=== PATIENT | female | born 1990 | race Caucasian/White ===

== ENCOUNTER 2017-09-27 15:30 | Outpatient (RCR) | payer OTHER, SELFPAY ==
--- NOTE | 2017-07-31 15:58 | HP.PTEVAL_ITS ---
Patient's Visit Information ANAND FRANKLIN is a 26 year old F referred to Physical Therapy by MD BARB Hutchison with a diagnosis of L/S strain. Date of Evaluation: 07/31/17 Physical Therapist: Ren Ewing, PT, - Visit Plan Frequency: 3x /Week Duration: 4-6 Weeks Plan: Postural edu, Neutral spine stab ex's, continued assessment of REIL as karin , HEP, and bike. US and EMS to control pt's pain - Subjective Subjective: DOI: 07/19/17. 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 Pt reports she suddenly on this date experienced, a popping sensation in her LB which resulted in her LB locking up and sudden pain. Pt reports she needed assistance from co workers to sit down and help her LB to feel better. Pt reports no PMHx of LBP prior to this episode. Pt notes she also has L LE T and N down L LE to the ant portion of the L knee. Sleep diff secondary to pain. Pt notes pain with sitting, standing, and walking. Pt reports leaning against her counter tops helps to ease her pain some. 7/10 at rest, 9/10 at worst (prolonged standing) - Pain LBP Pain Intensity (Out of 10): 7 Pain Intensity Range: 9 - Objective Neuro: B LE sensation is WNL to light touch. B pat tendon reflex= 2/3. MMT: B LE MMT is grossly rated at 5/5 throughout. ROM: Pt is severely limited with flex ROM in the L/S, and moderately limited with R SB and extension. No limitations with L SB. Repeated movements: both repeated flex and ext in standing peripheralized sx's into L LE - Goals Goal 1:: Decrease LBP x 50% to aid with sleep Goal Time Frame: 4-6 Weeks Goal 2:: Increase L/S ROM in all planes to WNL to aid with RTW without limitation Goal Time Frame: 4-6 Weeks Goal 3:: Decrease L LE radiculopathy x 50% to aid with increasing karin for ambulation Goal Time Frame: 4-6 Weeks Goal 4:: I with HEP Goal Time Frame: 4-6 Weeks - Rehabilitation Potential Physical Therapy Diagnosis: LBP, decreased L/S ROM, and L LE radiculopathy secondary to L/S disc derrangement Rehabilitation Potential: Good - Anticipated Interventions Patient/Client Instruction: Educate patient on: Condition, Plan of Care For the Purpose of:: To improve self management Therapeutic Exercise to Include: Strength training, Endurance training, Body mechanics, Postural training, Dynamic Lumbar Stabilization For the Purpose of:: To decrease pain, To increase ROM, To improve muscle performance and motor function IF ES: Yes Ultrasound (thermal/non thermal): Yes For the Purpose of:: To decrease pain, To improve muscle performance and motor function Thank you for the opportunity to evaluate your patient. For Medicare and Medicare HMO plans, please review the plan of care and approve it. It will need to be FAXED BACK to us at [phone] for Medicare purposes. Please let me know if there are questions or concerns regarding this plan of care. Physician Signature: Date:
--- NOTE | 2017-08-23 16:51 | HP.PTDCSUM ---
HP - PT D/C Summary It has been my pleasure to treat ANAND FRANKLIN under orders from Wing Mack MD, for the diagnosis of L/S strain for a total of 9 visit(s). Discharge Date: Please see the following information for a summary of their discharge status. - Subjective Subjective: PATIENT REPORTS SHE IS REALLY HURTING TODAY. SHE REPORTS SHE WOKE UP IN THE MIDDLE OF THE NIGHT WITH A LOT OF PAIN AND HORRIBLE PAIN ALL DAY TODAY FOR NO APPARENT REASON. THE PAIN IS EXTENDING INTO HER LEFT THIGH 02/11. PATIENT REPORTS SHE IS SCHEDULED TO SEE THE MED PRO DOCTOR 09/03/17. - Pain LBP Pain Intensity (Out of 10): 7 LEFT GROIN Pain Intensity (Out of 10): 0 - Overall Improvement % Improvement: 25 - Objective Objective/Function: OVER ALL PATIENT HAS NOT SHOWN A LOT OF IMPROVEMENT WITH PT. SHE IS PAINFUL WITH LUMBAR ROM TESTING ALL PLANES AND TESTING TODAY IS VERY SIMILAR TO INITIAL MEASUREMENTS. UPON EXAM TODAY: LUMBAR MVMT LOSS: FLEX - MOD, EXT - MIN, IVÁN SG - MIN. PATIENT WITH C/O INCREASED PAIN WITH LUMBAR ROM TESTING ALL PLANES JOSE JUAN FLEX AND EXTENSION. NEGATIVE RIGHT AND POSITIVE LLE DURAL. Neuro: B LE sensation is WNL to light touch. B pat tendon reflex= 2/3. MMT: B LE MMT is grossly rated at 5/5 throughout. PATIENT MAY BE A GOOD CANDIDATE TO TRY AQUATIC THERAPY. THIS WAS DISCUSSED WITH PATIENT AND SHE EXPRESSED WILLINGNESS TO TRY IT IF OK'D BY DOCTOR/INSURANCE. - Goals Goal 1:: Decrease LBP x 50% to aid with sleep Goal 2:: Increase L/S ROM in all planes to WNL to aid with RTW without limitation Goal 3:: Decrease L LE radiculopathy x 50% to aid with increasing karin for ambulation Goal 4:: I with HEP - Plan Plan: D/C TO FOLLOW UP WITH PHYSICIANS DUE TO NO FURTHER AUTH AT THIS TIME. - D/C Information If there are questions or concerns regarding this patient's physical therapy, please feel free to call me at [phone]. Thank you for the referral of this patient. Sincerely, Cristal Turpin
== END 2017-09-27 16:00 | disposition home or self-care (01) ==
LOC: PT 15:30
PROVIDERS: Visit Provider Family Medicine
DX: S39.012S Strain of muscle, fascia and tendon of lower back, sequela (principal)
CPT/HCPCS: 97014; 97110; 97161; 97530; G0283

== ENCOUNTER 2017-10-21 10:58 | Day surgery (SDC) | payer OTHER, SELFPAY ==
[2017-10-21 11:25] VITALS: BP 140/83; PULSE 81; RESP 18; TEMP 36.8; O2SAT 98; BMI 57.2
[2017-10-21 12:06] LABS: Internal QC Validated? YES +Cl - CLEAR BKGD; Pregnancy, Urine Negative Negative
--- NOTE | 2017-10-21 12:10 | RAD_ITS ---
PROCEDURE: Caudal block. DATE OF EXAMINATION: October 21, 2017. INDICATION: Female, 27 years old. Chronic back pain. FLUOROSCOPY TIME (if supplied): (0:12) minutes/seconds Imaging provided for caudal block. RAD/Fluor Guidance for Spine Inj IMPRESSION: Intraoperative imaging provided for caudal block. Electronically Signed: Zion Huizar MD at 15:57 EDT Tel [phone], Service support ,
[2017-10-21] MEDS: MethylPREDNISolone Acetate 80 MG/ML Vial (12:20)
[2017-10-21] MEDS: Bupivacaine 0.25% 30 ML Vial (12:20)
[2017-10-21 12:24] VITALS: BP 120/92; BP 140/83; PULSE 89; RESP 18; TEMP 36.5; O2SAT 97
[2017-10-21 12:30] VITALS: BP 114/61; BP 140/83; PULSE 79; RESP 18; O2SAT 97
[2017-10-21 12:35] VITALS: BP 122/76; BP 140/83; PULSE 75; RESP 16; O2SAT 97
[2017-10-21 12:40] VITALS: BP 120/65; BP 140/83; PULSE 71; RESP 18; TEMP 36.6; O2SAT 98
[2017-10-21 13:09] VITALS: BP 140/83
--- NOTE | 2017-10-21 13:44 | OP.PCM_ITS ---
Problem List (1) Displacement of intervertebral disc of lumbosacral region Status: Chronic Report of Operation Date of Procedure: 10/21/17 Pre-Operative Diagnosis: Lumbar disc displacement Post-Operative Diagnosis: Lumbar disc displacement Surgery/Procedure Performed:: Diagnostic/therapeutic caudal epidural steroid injection Description of Surgical Findings:: PROCEDURE: Diagnostic/therapeutic caudal epidural steroid injection PREOPERATIVE DIAGNOSIS: Lumbar Disc Displacement POSTOPERATIVE DIAGNOSIS: Lumbar Disc Displacement ANESTHESIA: MAC COMPLICATIONS: None BLOOD LOSS: Minimal PROCEDURE IN DETAIL: History and physical today was reviewed. Risks and benefits of the procedure were explained. The patient understood, agreed to our procedure, and informed consent was obtained. IV inserted per routine protocol. The patient was taken to the operating room, placed in a prone position with a pillow positioned underneath the abdomen. The lower back and tailbone area was prepped and draped in a sterile fashion using iodine ?3 under fluoroscopy guidance on the lateral view the caudal space was identified the skin and subcutaneous tissue and size approximately 3 cc of 1 % lidocaine using a 25-gauge regular needle under direct visualization fluoroscopy using the lateral approach using a 22-gauge 3-1/2 inch spinal needle the needle was advanced via the skin through the sacral hiatus, tip of the needle passed through the sacrococcygeal ligament advanced approximately S4 area after negative aspiration for blood or CSF a total of 3 cc of contrast were injected to confirm correct placement of the needle as well as cephalad spread the spread was followed to approximately L5 area after confirmation AP as well as lateral view repeated negative aspiration a total of 15 cc of preservative-free 0.125% Marcaine with 80 mg of the portal was injected easily. The needles were then removed intact. The patient experienced no signs or symptoms intrathecal, intravascular injection. The patient experienced no paraesthesia. The procedure was completed without any apparent difficult, any complication. The patient appeared to tolerate well. ASSESSMENT AND PLAN: This is a 27-year-old female with lumbar disc displacement status post diagnostic/therapeutic caudal epidural steroid injection. The patient will continue her current medications. The patient will follow in approximately 2 weeks for possible repeat of the procedure if indicated.
== END 2017-10-21 13:10 | disposition home or self-care (01) ==
LOC: SDC 11:00 → AC 11:02
PROVIDERS: Anesthesiology; Visit Provider Anesthesiology Pain Medicine
PROC: 3E0S3BZ Introduction of Anesthetic Agent into Epidural Space, Percutaneous Approach (ICD-10-PCS; CPT 62282; principal; 2017-10-21 12:20)
DX: M51.27 Other intervertebral disc displacement, lumbosacral region (principal); Z79.891 Long term (current) use of opiate analgesic
CPT/HCPCS: 62323; 64483; 77003; 81025; J7120; J3490

== ENCOUNTER → 2017-11-01 06:44 | Outpatient (CLI) | payer BC, SELFPAY ==
[2017-11-01 08:15] LABS: Cholesterol 168 mg/dL (200); Follicle Stimulating Hormone 8.2 mIU/mL; Glucose 92 mg/dL (74-106); High Density Lipoprotein 58 mg/dL; Prolactin 13.3 ng/mL; Triglycerides 80 mg/dL; Very Low Density Lipoprotein 16 mg/dL (5-40)
[2017-11-03 16:07] LABS: DHEA Sulfate 55.4 ug/dL (84.8-378.0)
[2017-11-04 11:07] LABS: Testosterone Free 0.9 pg/mL (0.0-4.2)
[2017-11-06 15:48] LABS: 17-Hydroxyprogesterone 41 ng/dL (.)
== END ==
LOC: LAB 06:45
PROVIDERS: Visit Provider Nurse Practitioner Women's Health
DX: N92.6 Irregular menstruation, unspecified (principal); E66.9 Obesity, unspecified
CPT/HCPCS: 36415; 80061; 82627; 82947; 83001; 83498; 84146; 84402; 84443; 82626

== ENCOUNTER → 2017-11-19 16:37 | Outpatient (CLI) | payer BC, SELFPAY ==
[2017-11-19 17:50] LABS: T4 Free Direct 0.85 ng/dL (0.76-1.46)
== END ==
PROVIDERS: Family Provider Internal Medicine; PCP Internal Medicine; Visit Provider Internal Medicine
DX: E03.9 Hypothyroidism, unspecified (principal)
CPT/HCPCS: 36415; 84439; 84443

== ENCOUNTER → 2017-11-22 14:48 | Outpatient (CLI) | payer BC, SELFPAY ==
--- NOTE | 2017-11-22 15:00 | US_ITS ---
STUDY: THYROID ULTRASOUND REASON FOR EXAM: Female, 27 years old. Hypothyroidism TECHNIQUE: Transverse and longitudinal ultrasound evaluation of the thyroid was performed with real-time and static willis-scale imaging. COMPARISON: None. FINDINGS: RIGHT LOBE: The right lobe of the thyroid gland measures 4.6 x 1.8 x 1.6 cm. There is a homogeneous echotexture. There are no demonstrated solid, cystic or complex lesions. LEFT LOBE: The left lobe of the thyroid gland measures 3.3 x 1.1 x 1.3 cm. There is a homogeneous echotexture. There are no demonstrated solid, cystic or complex lesions. ISTHMUS: The isthmus measures 3.0 mm. The regional lymph nodes are unremarkable. US/Thyroid IMPRESSION: The right lobe is larger than the left, however the thyroid itself is not significantly enlarged. There are no abnormal masses in the thyroid. Electronically Signed: Sully Lobo MD at 2:12 EDT Tel Direct: [phone], Service support ,
== END ==
LOC: US 14:48
PROVIDERS: Family Provider Internal Medicine; PCP Internal Medicine; Visit Provider Internal Medicine
DX: E03.9 Hypothyroidism, unspecified (principal)
CPT/HCPCS: 76536

== ENCOUNTER 2017-12-23 12:36 | Day surgery (SDC) | payer OTHER, SELFPAY ==
[2017-12-23 12:52] VITALS: PULSE 91; RESP 20; TEMP 36.9; O2SAT 99; BMI 57.7
[2017-12-23 12:54] LABS: Internal QC Validated? YES +Cl - CLEAR BKGD; Pregnancy, Urine Negative Negative
--- NOTE | 2017-12-23 13:30 | RAD_ITS ---
STUDY: X-RAY - LUMBAR SPINE REASON FOR EXAM: Female, 27 years old. Caudal block. TECHNIQUE: Single nondiagnostic view(s) of the lumbar spine was obtained intraoperatively. COMPARISON: None FINDINGS: Intraoperative fluoroscopic services provided for caudal block. RAD/OR-Steroi/Epid Inj/Lum Sac/1st IMPRESSION: Intraoperative fluoroscopic services provided for caudal block. Electronically Signed: Zion Huizar MD at 14:30 EDT Tel [phone], Service support ,
[2017-12-23] MEDS: MethylPREDNISolone Acetate 80 MG/ML Vial (13:50)
[2017-12-23] MEDS: Bupivacaine 0.25% 30 ML Vial (13:50)
[2017-12-23 13:55] VITALS: BP 136/69; PULSE 85; RESP 16; TEMP 36.4; O2SAT 99
[2017-12-23 14:00] VITALS: BP 137/65; PULSE 72; RESP 16; O2SAT 98
[2017-12-23 14:05] VITALS: BP 147/80; PULSE 80; RESP 16; O2SAT 99
[2017-12-23 14:10] VITALS: BP 152/79; PULSE 74; RESP 16; TEMP 37.1; O2SAT 100
--- NOTE | 2017-12-23 14:42 | OP.PCM_ITS ---
Problem List (1) Displacement of intervertebral disc of lumbosacral region Status: Chronic Report of Operation Date of Procedure: 12/23/17 Pre-Operative Diagnosis: Lumbar disc displacement Post-Operative Diagnosis: Lumbar disc displacement Surgery/Procedure Performed:: Caudal epidural steroid injection Description of Surgical Findings:: PROCEDURE: caudal epidural steroid injection PREOPERATIVE DIAGNOSIS: Lumbar Disc Displacement POSTOPERATIVE DIAGNOSIS: Lumbar Disc Displacement ANESTHESIA: MAC COMPLICATIONS: None BLOOD LOSS: Minimal PROCEDURE IN DETAIL: History and physical today was reviewed. Risks and benefits of the procedure were explained. The patient understood, agreed to our procedure, and informed consent was obtained. IV inserted per routine protocol. The patient was taken to the operating room, placed in a prone position with a pillow positioned underneath the abdomen. The lower back and tailbone area was prepped and draped in a sterile fashion using iodine ?3 under fluoroscopy guidance on the lateral view the caudal space was identified the skin and subcutaneous tissue and size approximately 3 cc of 1 % lidocaine using a 25-gauge regular needle under direct visualization fluoroscopy using the lateral approach using a 22-gauge 3-1/2 inch spinal needle the needle was advanced via the skin through the sacral hiatus, tip of the needle passed through the sacrococcygeal ligament advanced approximately S4 area after negative aspiration for blood or CSF a total of 3 cc of contrast were injected to confirm correct placement of the needle as well as cephalad spread the spread was followed to approximately L5 area after confirmation AP as well as lateral view repeated negative aspiration a total of 15 cc of preservative-free 0.125% Marcaine with 80 mg of the portal was injected easily. The needles were then removed intact. The patient experienced no signs or symptoms intrathecal, intravascular injection. The patient experienced no paraesthesia. The procedure was completed without any apparent difficult, any complication. The patient appeared to tolerate well. ASSESSMENT AND PLAN: This is a 27-year-old female with lumbar disc displacement status post caudal epidural steroid injection. The patient will continue her current medications. The patient will follow in approximately 2 weeks for possible repeat of the procedure if indicated.
[2017-12-23] MEDS: fentaNYL 100 MCG/2 ML Ampul IV (14:53)
[2017-12-23 15:56] VITALS: BP 156/85; PULSE 83; RESP 16; TEMP 36.5; O2SAT 100
== END 2017-12-23 16:17 | disposition home or self-care (01) ==
PROVIDERS: Anesthesiology; Family Provider Internal Medicine; PCP Internal Medicine; Visit Provider Anesthesiology Pain Medicine
PROC: 3E0S3BZ Introduction of Anesthetic Agent into Epidural Space, Percutaneous Approach (ICD-10-PCS; CPT 62282; principal; 2017-12-23 13:25)
DX: M51.27 Other intervertebral disc displacement, lumbosacral region (principal); K21.9 Gastro-esophageal reflux disease without esophagitis; E66.3 Overweight; Z68.43 Body mass index [BMI] 50.0-59.9, adult; Z79.891 Long term (current) use of opiate analgesic; Z79.899 Other long term (current) drug therapy
CPT/HCPCS: 01992; 62323; 64520; 64483; 77003; 81025; J7120; J3490

== ENCOUNTER 2018-02-17 09:30 | Day surgery (SDC) | payer OTHER, SELFPAY ==
[2018-02-17] VITALS (8 sets, daily range): BP systolic 123–136; BP diastolic 58–81; PULSE 64–79; RESP 16–18; TEMP 36.5–36.7; O2SAT 96–100; BMI 57.0
[2018-02-17 10:08] LABS: Internal QC Validated? YES +Cl - CLEAR BKGD
[2018-02-17 10:13] LABS: Pregnancy, Urine Negative Negative
--- NOTE | 2018-02-17 10:40 | RAD_ITS ---
PROCEDURE: Caudal block. DATE OF EXAMINATION: February 17, 2018. INDICATION: Female, 27 years old. Low back pain. FLUOROSCOPY TIME (if supplied): (0:04) minutes/seconds Intraoperative fluoroscopic imaging provided for caudal block. The spinal needle was seen on the mid posterior aspect of the sacrum. RAD/Fluor Guidance for Spine Inj IMPRESSION: Imaging provided for caudal block. Electronically Signed: Zion Huizar MD at 8:12 EDT Tel [phone], Service support ,
[2018-02-17] MEDS: MethylPREDNISolone Acetate 80 MG/ML Vial (10:45)
[2018-02-17] MEDS: Bupivacaine 0.25% 30 ML Vial (10:45)
--- NOTE | 2018-02-17 11:27 | OP.PCM_ITS ---
Problem List (1) Displacement of intervertebral disc of lumbosacral region Status: Chronic Report of Operation Date of Procedure: 02/17/18 Pre-Operative Diagnosis: Lumbar disc displacement Post-Operative Diagnosis: Lumbar disc displacement Surgery/Procedure Performed:: Caudal epidural steroid injection Description of Surgical Findings:: PROCEDURE: Caudal epidural steroid injection PREOPERATIVE DIAGNOSIS: Lumbar disc displacement POSTOPERATIVE DIAGNOSIS: Lumbar disc displacement ANESTHESIA: MAC COMPLICATIONS: None BLOOD LOSS: Minimal PROCEDURE IN DETAIL: History and physical today was reviewed. Risks and benefits of the procedure were explained. The patient understood, agreed to our procedure, and informed consent was obtained. IV inserted per routine protocol. The patient was taken to the operating room, placed in a prone position with a pillow positioned underneath the abdomen. The lower back and tailbone area was prepped and draped in a sterile fashion using iodine ?3 under fluoroscopy guidance on the lateral view the caudal space was identified skin and subcutaneous tissue anesthetized approximately 3 cc of 1 % lidocaine using a 25-gauge regular needle under direct visualization with fluoroscopy on the lateral approach using a 22-gauge 3-1/2 inch spinal needle the needle was advanced via the skin through the sacral hiatus tip of the needle passed through the sacrococcygeal ligament advanced approximately S4 area after negative aspiration for blood or CSF a total of 3 cc of contrast were injected to confirm correct placement of the needle as well as cephalad spread the spread was followed to approximately L5 area after confirmation of AP as well as lateral view and repeated negative aspiration a total of 15 cc of preservative-free 0.125% Marcaine with 80 mg of Depo-Medrol were injected easily the needle was then removed intact patient experienced no sinus symptoms intrathecal or intravascular injection patient experienced no paresthesia the procedure was completed without any apparent difficulty any complication the patient appeared to tolerate well. ASSESSMENT AND PLAN: This is a 27-year-old Female with lumbar disc displacement status post caudal epidural steroid injection. The patient will continue her current medications. The patient will follow in approximately 2 weeks for possible repeat of the procedure if indicated.
== END 2018-02-17 11:56 | disposition home or self-care (01) ==
LOC: SDC 09:31 → AC 09:33
PROVIDERS: Anesthesiology; Family Provider Internal Medicine; PCP Internal Medicine; Visit Provider Anesthesiology Pain Medicine
PROC: 3E0S3BZ Introduction of Anesthetic Agent into Epidural Space, Percutaneous Approach (ICD-10-PCS; CPT 62282; principal; 2018-02-17 10:45)
DX: M51.27 Other intervertebral disc displacement, lumbosacral region (principal); K21.9 Gastro-esophageal reflux disease without esophagitis; Z79.891 Long term (current) use of opiate analgesic; Z79.899 Other long term (current) drug therapy
CPT/HCPCS: 01992; 62323; 64520; 64483; 77003; 81025; J7120; J3490

== ENCOUNTER 2018-03-24 13:28 | Day surgery (SDC) | payer OTHER, SELFPAY ==
[2018-03-24 13:48] VITALS: BP 151/80; PULSE 78; RESP 16; TEMP 36.4; O2SAT 99; BMI 56.9
[2018-03-24 14:02] LABS: Internal QC Validated? YES +Cl - CLEAR BKGD; Pregnancy, Urine Negative Negative
--- NOTE | 2018-03-24 14:30 | RAD_ITS ---
PROCEDURE: Caudal block. DATE OF EXAMINATION: March 24, 2018. INDICATION: Female, 27 years old. Low back pain. FLUOROSCOPY TIME (if supplied): (0:18) minutes/seconds. 3 cone-down views were obtained. Intraoperative fluoroscopic services provided for caudal block. RAD/Fluor Guidance for Spine Inj IMPRESSION: Intraoperative fluoroscopic services provided for caudal block. Electronically Signed: Zion Huizar MD at 8:25 EDT Tel [phone], Service support ,
[2018-03-24] MEDS: MethylPREDNISolone Acetate 80 MG/ML Vial (14:36)
[2018-03-24] MEDS: Bupivacaine 0.25% 30 ML Vial (14:37)
[2018-03-24 14:45] VITALS: BP 116/79; BP 151/80; PULSE 82; RESP 16; TEMP 36.7; O2SAT 98
[2018-03-24 14:50] VITALS: BP 135/82; BP 151/80; PULSE 73; RESP 16; O2SAT 98
[2018-03-24 14:55] VITALS: BP 144/80; BP 151/80; PULSE 72; RESP 16; O2SAT 99
[2018-03-24 15:00] VITALS: BP 146/74; BP 151/80; PULSE 77; RESP 18; TEMP 37.2; O2SAT 98
--- NOTE | 2018-03-24 15:16 | PCM.OPRPT ---
Problem List (1) Displacement of intervertebral disc of lumbosacral region Status: Chronic Report of Operation Date of Procedure: 03/24/18 Pre-Operative Diagnosis: Lumbar disc displacement Post-Operative Diagnosis: Lumbar disc displacement Surgery/Procedure Performed:: Caudal epidural steroid injection Description of Surgical Findings:: PROCEDURE: Caudal epidural steroid injection PREOPERATIVE DIAGNOSIS: Lumbar disc displacement POSTOPERATIVE DIAGNOSIS: Lumbar disc displacement ANESTHESIA: MAC COMPLICATIONS: None BLOOD LOSS: Minimal PROCEDURE IN DETAIL: History and physical today was reviewed. Risks and benefits of the procedure were explained. The patient understood, agreed to our procedure, and informed consent was obtained. IV inserted per routine protocol. The patient was taken to the operating room, placed in a prone position with a pillow positioned underneath the abdomen. The Lower back and tailbone area was prepped and draped in a sterile fashion using iodine ?3, under fluoroscopy guidance on the lateral view the caudal space was identified the skin and subcutaneous tissue and size approximately 3 cc of 1% lidocaine using a 25-gauge regular needle under direct visualization with fluoroscopy using a 22-gauge 3-1/2 inch spinal needle the needle was advanced via the skin through the sacral hiatus the needle then was passed through the sacrococcygeal ligament and advanced to approximately S4 area, after negative aspiration for blood or CSF, a total of 3 cc of contrast were injected to confirm correct placement of the needle as well as cephalad spread the spread was followed to approximately L5 area. after confirmation on AP as well as lateral view and repeated negative aspiration, a total of 15 cc of preservative-free 0.125% Marcaine with 80 mg of Depo-Medrol was injected easily. The needles were then removed intact. The patient experienced no signs or symptoms intrathecal, intravascular injection. The patient experienced no paraesthesia. The procedure was completed without any apparent difficult, any complication. The patient appeared to tolerate well. ASSESSMENT AND PLAN: This is a 27-year-old female with lumbar disc displacement status post caudal epidural steroid injection. The patient will continue her current medications. The patient will follow in approximately 2 weeks for reevaluation.
[2018-03-24 15:28] VITALS: BP 151/80
== END 2018-03-24 15:41 | disposition home or self-care (01) ==
LOC: SDC 13:30 → AC 13:31
PROVIDERS: Family Provider Internal Medicine; PCP Internal Medicine; Visit Provider Anesthesiology Pain Medicine
PROC: 3E0S3BZ Introduction of Anesthetic Agent into Epidural Space, Percutaneous Approach (ICD-10-PCS; CPT 62282; principal; 2018-03-24 14:05)
DX: M51.27 Other intervertebral disc displacement, lumbosacral region (principal); E66.9 Obesity, unspecified; Z68.43 Body mass index [BMI] 50.0-59.9, adult; Z79.891 Long term (current) use of opiate analgesic; Z79.899 Other long term (current) drug therapy
CPT/HCPCS: 62323; 64483; 77003; 81025; J7120

== ENCOUNTER 2018-04-02 15:30 | Outpatient (RCR) | payer OTHER, SELFPAY ==
--- NOTE | 2017-11-21 16:02 | HP.PTEVAL_ITS ---
Patient's Visit Information ANAND FRANKLIN is a 27 year old F referred to Physical Therapy by Elton Tam MD with a diagnosis of LBP. Date of Evaluation: 11/21/17 Physical Therapist: Ren Ewing PT, - Visit Plan Frequency: 3x /Week Duration: 6 Weeks Plan: Postural education, core stability ex's, nustep, and HEP - Subjective Subjective: DOI: 07/19/17. 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 Pt reports she had 2 rounds of PT, but had very little success. Pt then went on 10/21/17 for LB injections which helped out a lot. 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 Pt reports occasional B LE radiculopathy if she moves wrong, R LE being more frequent than the L LE. Pt reports no sleep diff since the injection. Pt still has diff with prolonged standing like when she washes dishes. Pt also notes diff with bending forward to fold laundry and tie her shoes. 2/10 at rest, 4/10 at worst (washing dishes) - Pain LBP Pain Intensity (Out of 10): 0 Pain Intensity Range: 4 - Objective Neuro: B LE sensation is WNL to light touch. B pat reflex= 2/3. LE MMT: B LE 5/ 5 throughout. L/S ROM: Pt is minimally limited with L/S ext ROM. All other ranges are WNL. Gait: Pt is able to ambulate 680' I until feeling fatigued in LB and needing to rest. Special tests: Pt has a positive Trendelenburg sign on R LB with L SLS indicating core weakness. - Goals Goal 1:: Decrease LBP x 50% to aid with increased karin for standing Goal 2:: Increase core stability x one grade to aid with work requirements Goal Time Frame: 4-6 Weeks Goal 3:: I with HEP Goal Time Frame: 4-6 Weeks - Rehabilitation Potential Physical Therapy Diagnosis: Pt has LBP and limitations with gait and standing secondary to L/S instability Rehabilitation Potential: Good - Anticipated Interventions Patient/Client Instruction: Educate patient on: Condition, Plan of Care For the Purpose of:: To improve self management Therapeutic Exercise to Include: Strength training, Endurance training, Balance training, Body mechanics, Postural training, Gait and locomotor training, Dynamic Lumbar Stabilization For the Purpose of:: To decrease pain, To increase ROM, To improve muscle performance and motor function Cryotherapy (ice pack, ice massage): Yes For the Purpose of:: To decrease pain Thank you for the opportunity to evaluate your patient. For Medicare and Medicare HMO plans, please review the plan of care and approve it. It will need to be FAXED BACK to us at [phone] for Medicare purposes. Please let me know if there are questions or concerns regarding this plan of care. Physician Signature: Date:
--- NOTE | 2018-04-02 15:56 | HP.PTDCSUM ---
HP - PT D/C Summary It has been my pleasure to treat ANAND FRANKLIN under orders from Elton Tam MD, for the diagnosis of LBP for a total of 34 visit(s). Discharge Date: Please see the following information for a summary of their discharge status. - Subjective Subjective: Pt reports L sided LBP this date, no leg pain - Pain LBP Pain Intensity (Out of 10): 5 - Objective Objective/Function: LBP ranges 5/10 to 7/10. Pt has improved core stability overall, but still has trouble with lifting objects such as a bag of groceries. Pt is I with HEP. Rx goals not achieved - Goals Goal 1:: Decrease LBP x 50% to aid with increased karin for standing Goal Progress: Not Progressing Goal 2:: Increase core stability x one grade to aid with work requirements Goal Progress: Progressing Goal 3:: I with HEP Goal Progress: Progressing - Plan Plan: Discontinue - D/C Information If there are questions or concerns regarding this patient's physical therapy, please feel free to call me at [phone]. Thank you for the referral of this patient. Sincerely, Ren Ewing, PT,
== END 2018-04-02 17:04 | disposition home or self-care (01) ==
LOC: PT 15:30
PROVIDERS: Family Provider Internal Medicine; PCP Internal Medicine; Visit Provider Anesthesiology Pain Medicine
DX: M51.27 Other intervertebral disc displacement, lumbosacral region (principal)
CPT/HCPCS: 97014; 97110; 97113; 97161; 97530; G0283

== ENCOUNTER 2018-05-05 09:14 | Day surgery (SDC) | payer OTHER, SELFPAY ==
[2018-05-05 09:36] LABS: Internal QC Validated? YES +Cl - CLEAR BKGD; Pregnancy, Urine Negative Negative
[2018-05-05 09:42] VITALS: BP 127/70; PULSE 77; RESP 16; TEMP 36.5; O2SAT 99; BMI 55.7
--- NOTE | 2018-05-05 10:20 | RAD_ITS ---
STUDY: X-RAY - LUMBAR SPINE REASON FOR EXAM: Female, 27 years old. Right L4-S1 facet joint block. TECHNIQUE: 3 cone down view(s) of the lumbar spine were obtained intraoperatively. 9 seconds of fluoroscopy was obtained.. COMPARISON: None FINDINGS: Intraoperative imaging provided for right L4-S1 facet joint block. RAD/Lumbar Spine 2 or 3 Views IMPRESSION: Intraoperative imaging provided for right L4-S1 facet joint block. Electronically Signed: Zion Huizar MD at 13:29 EDT Tel [phone], Service support ,
--- NOTE | 2018-05-05 10:20 | RAD_ITS ---
STUDY: X-RAY - LUMBAR SPINE REASON FOR EXAM: Female, 27 years old. Left L4-S1 facet joint block. TECHNIQUE: 3 cone down intraoperative view(s) of the lumbar spine were obtained. 43.6 seconds of fluoroscopy. COMPARISON: None FINDINGS: Intraoperative imaging provided for left L4 S1 facet joint block. RAD/Lumbar Spine 2 or 3 Views IMPRESSION: Intraoperative imaging provided for left L4-S1 facet joint block. Electronically Signed: Zion Huizar MD at 13:28 EDT Tel [phone], Service support ,
[2018-05-05] MEDS: MethylPREDNISolone Acetate 80 MG/ML Vial (10:21)
[2018-05-05] MEDS: Bupivacaine Mpf 0.5% 30 ML VIAL (10:22)
[2018-05-05 10:34] VITALS: BP 124/74; BP 127/70; PULSE 80; RESP 16; TEMP 36.2; O2SAT 94
[2018-05-05 10:40] VITALS: BP 124/62; BP 127/70; PULSE 70; RESP 16; O2SAT 97
[2018-05-05 10:45] VITALS: BP 112/61; BP 127/70; PULSE 65; RESP 16; O2SAT 100
[2018-05-05 10:50] VITALS: BP 127/70; BP 135/64; PULSE 68; RESP 14; TEMP 36.7; O2SAT 100
[2018-05-05 11:44] VITALS: BP 127/70
--- NOTE | 2018-05-05 11:57 | PCM.OPRPT ---
Problem List (1) Displacement of intervertebral disc of lumbosacral region Status: Chronic Report of Operation Date of Procedure: 05/05/18 Pre-Operative Diagnosis: Lumbar disc displacement Post-Operative Diagnosis: Lumbar disc displacement Surgery/Procedure Performed:: Bilateral lumbar facet steroid injection L4, L5, S1 Description of Surgical Findings:: PROCEDURE: Bilateral lumbar facet steroid injection L4, L5, S1 PREOPERATIVE DIAGNOSIS: Lumbar disc displacement POSTOPERATIVE DIAGNOSIS: Lumbar disc displacement ANESTHESIA: MAC COMPLICATIONS: None BLOOD LOSS: Minimal PROCEDURE IN DETAIL: History and physical today was reviewed. Risks and benefits of the procedure were explained. The patient understood, agreed to our procedure, and informed consent was obtained. IV inserted per routine protocol. The patient was taken to the operating room, placed in a prone position with a pillow positioned underneath the abdomen. The lower back area was prepped and draped in a sterile fashion using iodine x3 under fluoroscopic guidance on AP as well as oblique views of the L4 through S1 vertebral bodies are visualized the skin and subcutaneous tissue and size approximately 5 cc of 1% lidocaine using a 25-gauge regular needle under direct visualization with fluoroscopy at approximately 35 degrees angle starting on the left L4 ending on the right L4 passing through the L5, S1 bilaterally using a 22-gauge 5 inch spinal needle the needle was advanced via the skin the tip of the needle was maneuvered and directed towards the superior medial gutter of the transverse process at the vicinity of the medial branch once tip of the needles and contact with the bone the needle pulled approximately 2 mm of the bone after negative aspiration for blood or CSF and confirmation of AP oblique as well as lateral view a total of 12 cc of preservative-free 0.25% Marcaine with 80 mg of Depo-Medrol were injected in divided doses between those 6 levels. The needles were then removed intact. The patient experienced no signs or symptoms intrathecal, intravascular injection. The patient experienced no paraesthesia. The procedure was completed without any apparent difficult, any complication. The patient appeared to tolerate well. ASSESSMENT AND PLAN: This is a 27-year-old female with lumbar disc displacement status post bilateral lumbar facet steroid injection L4 through S1. The patient will continue her current medications. The patient will follow in approximately 2 weeks for possible repeat of the procedure if indicated.
== END 2018-05-05 11:46 | disposition home or self-care (01) ==
LOC: SDC 09:17 → AC 09:32
PROVIDERS: Family Provider Internal Medicine; PCP Internal Medicine; Referring Provider Anesthesiology Pain Medicine; Visit Provider Anesthesiology Pain Medicine
PROC: 3E0T3BZ Introduction of Anesthetic Agent into Peripheral Nerves and Plexi, Percutaneous Approach (ICD-10-PCS; CPT 64493; principal; 2018-05-05 10:15)
DX: M51.27 Other intervertebral disc displacement, lumbosacral region (principal); K21.9 Gastro-esophageal reflux disease without esophagitis; F32.9 Major depressive disorder, single episode, unspecified; Z90.49 Acquired absence of other specified parts of digestive tract; Z79.891 Long term (current) use of opiate analgesic; Z79.899 Other long term (current) drug therapy
CPT/HCPCS: 64493; 64494; 64495; 64483; 72100; 72110; 81025; J7120; J3490

== ENCOUNTER 2018-09-22 07:58 | Day surgery (SDC) | payer OTHER, SELFPAY ==
[2018-09-22] VITALS (7 sets, daily range): BP systolic 118–147; BP diastolic 55–90; PULSE 63–83; RESP 16–18; TEMP 36.4–37; O2SAT 94–99; BMI 55.9
[2018-09-22 08:57] LABS: Internal QC Validated? YES +Cl - CLEAR BKGD; Pregnancy, Urine Negative Negative
[2018-09-22] MEDS: Bupivacaine 0.25% 30 ML Vial (09:00)
[2018-09-22] MEDS: MethylPREDNISolone Acetate 80 MG/ML Vial (09:00)
--- NOTE | 2018-09-22 09:10 | RAD_ITS ---
STUDY: X-RAY - LUMBOSACRAL SPINE REASON FOR EXAM: Female, 27 years old. Bilateral lumbar facet block at L4 S1 TECHNIQUE: 6 view(s) of the lumbosacral spine were obtained. COMPARISON: None FINDINGS: Intraoperative spot fluoroscopy images were obtained demonstrating needle placement for facet block. RAD/L/S Spine Comp/w Bending Views IMPRESSION: As above Electronically Signed: Reese Pope DO at 8:44 EST Tel , Service support ,
--- NOTE | 2018-09-22 09:20 | PCM.OPRPT ---
Problem List (1) Displacement of intervertebral disc of lumbosacral region Status: Chronic Report of Operation Date of Procedure: 09/22/18 Pre-Operative Diagnosis: Lumbar disc displacement Post-Operative Diagnosis: Lumbar disc displacement Surgery/Procedure Performed:: Bilateral lumbar facet steroid injection L4, L5, S1 Description of Surgical Findings:: PROCEDURE: Bilateral lumbar facet steroid injection L4, L5, S1 PREOPERATIVE DIAGNOSIS: Lumbar disc displacement POSTOPERATIVE DIAGNOSIS: Lumbar disc displacement ANESTHESIA: MAC COMPLICATIONS: None BLOOD LOSS: Minimal PROCEDURE IN DETAIL: History and physical today was reviewed. Risks and benefits of the procedure were explained. The patient understood, agreed to our procedure, and informed consent was obtained. IV inserted per routine protocol. The patient was taken to the operating room, placed in a prone position with a pillow positioned underneath the abdomen. The lower back area was prepped and draped in a sterile fashion using iodine x3. Under fluoroscopy guidance, on AP view, L4 through S1 vertebral bodies were visualized. Skin and subcutaneous tissues were anesthetized with approximately 5 mL of 1% lidocaine using a 25-gauge regular needle. Under direct visualization with fluoroscopy at approximately 25-degree angle, starting on the right L4, ending on the left L4, passing through the L5, S1 bilaterally using a 22-gauge 5 inch spinal needle, the needle was advanced via the skin. The tip of the needle was maneuvered and directed towards the superior and medial gutter of the transverse process at the vicinity of the medial branch. Once the tip of the needle was in contact with the bone, the needle pulled approximately 2 mm off the bone. After negative aspiration of blood with CSF and confirmation of AP as well as oblique view, a total of 12 mL of preservative-free 0.25% Marcaine with 80 mg of Depo-Medrol was injection in divided doses between those 6 levels. The needles were then removed intact. The patient experienced no signs or symptoms of intrathecal or intravascular injection. The patient experienced no paraesthesia. The procedure was completed without any apparent difficult, any complication. The patient appeared to tolerate well. ASSESSMENT AND PLAN: This is a 27-year-old Female with lumbar disc displacement, status post bilateral lumbar facet steroid injection L4 through S1. The patient will continue her current medications. The patient will follow in approximately 2 weeks for reevaluation.
--- NOTE | 2018-09-22 09:23 | OP.PCM_ITS ---
Problem List (1) Displacement of intervertebral disc of lumbosacral region Status: Chronic Report of Operation Date of Procedure: 09/22/18 Pre-Operative Diagnosis: Lumbar disc displacement Post-Operative Diagnosis: Lumbar disc displacement Surgery/Procedure Performed:: Bilateral lumbar facet steroid injection L4, L5, S1 Description of Surgical Findings:: PROCEDURE: Bilateral lumbar facet steroid injection L4, L5, S1 PREOPERATIVE DIAGNOSIS: Lumbar disc displacement POSTOPERATIVE DIAGNOSIS: Lumbar disc displacement ANESTHESIA: MAC COMPLICATIONS: None BLOOD LOSS: Minimal PROCEDURE IN DETAIL: History and physical today was reviewed. Risks and benefits of the procedure were explained. The patient understood, agreed to our procedure, and informed consent was obtained. IV inserted per routine protocol. The patient was taken to the operating room, placed in a prone position with a pillow positioned underneath the abdomen. The lower back area was prepped and draped in a sterile fashion using iodine x3. Under fluoroscopy guidance, on AP view, L4 through S1 vertebral bodies were visualized. Skin and subcutaneous tissues were anesthetized with approximately 5 mL of 1% lidoc osbaldo using a 25-gauge regular needle. Under direct visualization with fluoroscopy at approximately 25-degree angle, starting on the right L4, ending on the left L4, passing through the L5, S1 bilaterally using a 22-gauge 5 inch spinal needle, the needle was advanced via the skin. The tip of the needle was maneuvered and directed towards the superior and medial gutter of the transverse process at the vicinity of the medial branch. Once the tip of the needle was in contact with the bone, the needle pulled approximately 2 mm off the bone. After negative aspiration of blood with CSF and confirmation of AP as well as oblique view, a total of 12 mL of preservative-free 0.25% Marcaine with 80 mg of Depo- Medrol was injection in divided doses between those 6 levels. The needles were then removed intact. The patient experienced no signs or symptoms of intrathecal or intravascular injection. The patient experienced no paraesthesia. The procedure was completed without any apparent difficult, any complication. The patient appeared to tolerate well. ASSESSMENT AND PLAN: This is a 27-year-old Female with lumbar disc displacement, status post bilateral lumbar facet steroid injection L4 through S1. The patient will continue her current medications. The patient will follow in approximately 2 weeks for reevaluation.
== END 2018-09-22 09:57 | disposition home or self-care (01) ==
LOC: SDC 07:59 → AC 08:00
PROVIDERS: Family Provider Internal Medicine; PCP Internal Medicine; Referring Provider Anesthesiology Pain Medicine; Visit Provider Anesthesiology Pain Medicine
PROC: 3E0T3BZ Introduction of Anesthetic Agent into Peripheral Nerves and Plexi, Percutaneous Approach (ICD-10-PCS; CPT 64520; principal; 2018-09-22 09:05)
DX: M51.27 Other intervertebral disc displacement, lumbosacral region (principal)
CPT/HCPCS: 01992; 64520 ×3; 64483; 72114; 81025; J7120

== ENCOUNTER → 2018-11-06 15:58 | Outpatient (CLI) | payer OTHER, SELFPAY ==
--- NOTE | 2018-11-06 | EMB_PTH ---
PATIENT: ANAND WILDE LOC: [facility] U#:[id number] AGE/SX: 34/F ROOM: RE11/06/[address]: RIDDHI Velasquez : 1990 BED: DIS: SPEC #: [id number] RECD: 11/06/18 15:54 STATUS: SINTIA BRENNAN #: [id number] MAXIMINO: 11/06/18 00:[address]: Chandrika Chiang NP DEPT: SURGICAL PATHOLOGY RECD BY: Boston Vazquez ENTERED: 11/07/18 09:31 SP TYPE: ENDOM BX/C JOHNNIE DR: Dr. Lillie Madrid MD Tissues: Endometrium, NOS Procedures: Surgery Specimen Level IV HEADER OPERATION: Endometrial biopsy PRE-OP DIAGNOSIS: Abnormal uterine bleeding TISSUE SUBMITTED: Endometrial lining MICROSCOPIC DIAGNOSIS Endometrial lining, biopsy: Proliferative endometrium. Strips of benign superficial endocervix. See comment. AM:jose 11/10/18 COMMENT There is no evidence of hyperplasia. Clinical correlation is suggested. MICROSCOPIC DESCRIPTION Slides are reviewed. GROSS DESCRIPTION Received is one container labeled with the patient's name and not further designated. The specimen consists of multiple fragments of hemorrhagic soft tissue that in aggregate measure 3 x 2.5 x 0.3 cm. The entire specimen is submitted in one cassette. / SJ:jose 11/07/18 TC:5 CPT: 30421
[2018-11-06 15:17] VITALS: BMI 57.1
== END ==
PROVIDERS: Family Provider Internal Medicine; PCP Internal Medicine; Referring Provider Nurse Practitioner Women's Health; Visit Provider Nurse Practitioner Women's Health
DX: N93.9 Abnormal uterine and vaginal bleeding, unspecified (principal)
CPT/HCPCS: 88305

== ENCOUNTER → 2018-11-07 08:34 | Outpatient (CLI) | payer OTHER, SELFPAY ==
[2018-11-06 15:17] VITALS: BMI 57.1
[2018-11-07 09:15] LABS: Absolute Lymphocyte Count 1.87 X10^3/ul (0.83-4.51); Absolute Neutrophil Count 4.4 X10^3/uL (2.0-7.7); Basophil# 0.02 X10^3/uL; Basophil% 0.3 % (0-1); Eosinophil# 0.14 X10^3/uL; Hematocrit 39.3 % (37-47); Hemoglobin 12.6 g/dl (12.0-15.0); Lymphocyte # 1.87 X10^3/ul (4.0); Lymphocyte % 27.3 % (19-41); Mean Corp Hgb Conc 32.1 g/gl (32-36); Mean Corpuscular Hgb 28.4 pg (27.0-32.0); Mean Corpuscular Volume 88.5 fL (81-99); Mean Platelet Vol. 9.9 fl (6.2-12.0); Monocyte# 0.36 X10^3/uL; Monocyte% 5.3 % (0-10); Neutrophil # 4.44 X10^3/uL (2.7-7.7); Platelet Count 231 K/mm3 (150-450); RBC Distribution Width CV 13.9 % (11.6-14.6); RBC Distribution Width SD 45.3 fl (35.1-43.9); Red Blood Count 4.44 M/mm3 (4.2-5.4); White Blood Count 6.8 K/mm3 (4.4-11.0)
[2018-11-07 09:18] LABS: POSITIVE COUNT NO; POSITIVE DIFFERENTIAL NO; POSITIVE MORPHOLOGY NO
[2018-11-07 10:00] LABS: ALB/GLOB Ratio 0.9 RATIO (0.9-2.4); AST(SGOT) 16 U/L (15-37); Alanine Aminotransfer ALT/SGPT 24 U/L (13-56); Albumin, Serum 3.5 g/dL (3.2-5.0); Alkaline Phosphatase 55 U/L (45-117); Anion Gap 8 (5-15); BUN 11 mg/dL (7-18); BUN/Creat Ratio 14.8 RATIO (10-20); Calcium,Total 8.3 mg/dL (8.5-10.1); Chloride 106 mmol/L (98-107); Creatinine, Serum 0.74 mg/dL (0.55-1.02); EST Glomerular Filtration Rate 99 mL/min (>60); Est Glom Filt Rate - Afr Amer 120 mL/min (>60); Glucose 111 mg/dL (74-106); Potassium 3.9 mmol/L (3.5-5.1); Protein, Total 7.5 g/dL (6.4-8.2); Sodium Level 141 mmol/L (136-145); T4 Free Direct 0.98 ng/dL (0.76-1.46); Thyroid Stim Hormone (TSH) 4.37 uIU/mL (0.358-3.74)
== END ==
LOC: LAB 08:36
PROVIDERS: Family Provider Internal Medicine; PCP Internal Medicine; Referring Provider Internal Medicine; Visit Provider Internal Medicine
DX: E03.9 Hypothyroidism, unspecified (principal); E66.01 Morbid (severe) obesity due to excess calories; G43.909 Migraine, unspecified, not intractable, without status migrainosus
CPT/HCPCS: 36415; 80053; 84439; 84443; 85025

== ENCOUNTER → 2018-12-16 08:38 | Outpatient (CLI) | payer OTHER, SELFPAY ==
[2018-12-16 08:14] VITALS: BMI 57.4
[2018-12-16 12:46] LABS: T4 Free Direct 1.02 ng/dL (0.76-1.46); Thyroid Stim Hormone (TSH) 3.42 uIU/mL (0.358-3.74)
== END ==
LOC: BIMLAB 08:38
PROVIDERS: Family Provider Internal Medicine; PCP Internal Medicine; Visit Provider Internal Medicine
DX: E03.9 Hypothyroidism, unspecified (principal)
CPT/HCPCS: 36415; 84439; 84443

== ENCOUNTER → 2019-04-10 | Outpatient (CLI) | payer OTHER, SELFPAY ==
[2019-04-10 08:55] VITALS: BMI 57.4
[2019-04-10 12:17] LABS: Absolute Lymphocyte Count 1.69 X10^3/uL (0.83-4.51); Absolute Neutrophil Count 4.1 X10^3/uL (2.0-7.7); Basophil# 0.03 X10^3/uL; Basophil% 0.5 % (0-1); Eosinophil# 0.12 X10^3/uL; Eosinophils% 1.9 % (0-5); Hematocrit 40.5 % (37-47); Hemoglobin 12.6 g/dL (12.0-15.0); Lymphocyte # 1.69 X10^3/ul (4.0); Lymphocyte % 26.6 % (19-41); Mean Corp Hgb Conc 31.1 g/dL (32-36); Mean Corpuscular Hgb 28.1 pg (27.0-32.0); Mean Corpuscular Volume 90.4 fL (81-99); Mean Platelet Vol. 10.2 fl (6.2-12.0); Monocyte% 6.3 % (0-10); NRBC Flagged by Analyzer 0 % (0-5); Neutrophil % 64.4 % (47-70); Platelet Count 224 K/mm3 (150-450); RBC Distribution Width CV 14.2 % (11.6-14.6); RBC Distribution Width SD 46.5 fl (35.1-43.9); Red Blood Count 4.48 M/mm3 (4.2-5.4); White Blood Count 6.4 K/mm3 (4.4-11.0)
== END | disposition home or self-care (01) ==
PROVIDERS: Family Provider Internal Medicine; PCP Internal Medicine; Referring Provider Internal Medicine; Visit Provider Internal Medicine
DX: K92.2 Gastrointestinal hemorrhage, unspecified (principal)
CPT/HCPCS: 36415; 82274; 85025

== ENCOUNTER 2020-01-04 08:33 | Day surgery (SDC) | payer OTHER, SELFPAY ==
[2019-04-10 08:55] VITALS: BMI 57.4
[2020-01-04] VITALS (7 sets, daily range): BP systolic 116–134; BP diastolic 49–73; PULSE 65–75; RESP 16; TEMP 36.6–36.8; O2SAT 98–100; BMI 59.9
[2020-01-04 09:07] LABS: Internal QC Validated? YES +Cl - CLEAR BKGD; Pregnancy, Urine Negative Negative
[2020-01-04] MEDS: Lactated Ringers 1,000 ML 100 ML IV (09:14)
[2020-01-04] MEDS: Bupivacaine 0.25% 30 ML Vial (09:35)
[2020-01-04] MEDS: MethylPREDNISolone Acetate 80 MG/ML Vial (09:35)
--- NOTE | 2020-01-04 09:40 | RAD_ITS ---
PROCEDURE: Lumbar facet steroid injection. DATE OF EXAMINATION: January 04, 2020. INDICATION: Female, 29 years old. Chronic low back pain. FLUOROSCOPY TIME (if supplied): (48.2 seconds.) minutes/seconds. 7 intraoperative images were obtained. Intraoperative imaging provided for bilateral L4-S1 facet joint injection. RAD/L/S Spine Min 4 Views IMPRESSION: Intraoperative imaging provided for bilateral L4-S1 facet joint injection. Electronically Signed: Zion Huizar, at 11:14 EDT , Service support ,
--- NOTE | 2020-01-04 14:34 | OP.PCM_ITS ---
Report of Operation Date of Procedure: 01/04/20 Description of Surgical Findings:: PROCEDURE: Bilateral lumbar facet steroid injection L4, L5, S1 PREOPERATIVE DIAGNOSIS: Lumbar disc displacement POSTOPERATIVE DIAGNOSIS: Lumbar disc displacement ANESTHESIA: MAC COMPLICATIONS: None BLOOD LOSS: Minimal PROCEDURE IN DETAIL: History and physical today was reviewed. Risks and benefits of the procedure were explained. The patient understood, agreed to our procedure, and informed consent was obtained. IV inserted per routine protocol. The patient was taken to the operating room, placed in a prone position with a pillow positioned underneath the abdomen. The lower back area was prepped and draped in a sterile fashion using iodine x3. Under fluoroscopy guidance, on AP view, L4 through S1 vertebral bodies were visualized. Skin and subcutaneous tissues were anesthetized with approximately 5 mL of 1% lidocaine using a 25-gauge regular needle. Under direct visualization with fluoroscopy at approximately 25-degree angle, starting on the right L4, ending on the left L4, passing through the L5, S1 bilaterally using a 22-gauge 5 inch spinal needle, the needle was advanced via the skin. The tip of the needle was maneuvered and directed towards the superior and medial gutter of the transverse process at the vicinity of the medial branch. Once the tip of the needle was in contact with the bone, the needle pulled approximately 2 mm off the bone. After negative aspiration of blood with CSF and confirmation of AP as well as oblique view, a total of 12 mL of preservative-free 0.25% Marcaine with 80 mg of Depo- Medrol was injection in divided doses between those 6 levels. The needles were then removed intact. The patient experienced no signs or symptoms of intrathecal or intravascular injection. The patient experienced no paraesthesia. The procedure was completed without any apparent difficult, any complication. The patient appeared to tolerate well. ASSESSMENT AND PLAN: This is a 29-year-old Female with lumbar disc displacement, status post bilateral lumbar facet steroid injection L4 through S1. The patient will continue her current medications. The patient will follow in approximately 2 weeks for reevaluation.
== END 2020-01-04 10:43 | disposition home or self-care (01) ==
LOC: SDC 08:35 → AC 08:38
PROVIDERS: Anesthesiology; PCP Internal Medicine; Referring Provider Anesthesiology Pain Medicine; Visit Provider Anesthesiology Pain Medicine
PROC: 3E0T3BZ Introduction of Anesthetic Agent into Peripheral Nerves and Plexi, Percutaneous Approach (ICD-10-PCS; CPT 64493; principal; 2020-01-04 09:35)
DX: M51.26 Other intervertebral disc displacement, lumbar region (principal); E66.3 Overweight; Z68.43 Body mass index [BMI] 50.0-59.9, adult; Z79.891 Long term (current) use of opiate analgesic
CPT/HCPCS: 64493; 64494; 64483; 72110; 81025; J7120

== ENCOUNTER 2020-03-21 07:18 | Day surgery (SDC) | payer OTHER, SELFPAY ==
[2020-02-03 07:00] VITALS: BMI 59.9
[2020-03-21] VITALS (8 sets, daily range): BP systolic 116–155; BP diastolic 74–94; PULSE 57–71; RESP 16; TEMP 36.2–36.9; O2SAT 96–100; BMI 60.2
--- NOTE | 2020-03-21 08:01 | HP_ITS ---
CC Follow up for back pain HPI This is a 29 Y/O female who was seen and evaluated at our office today as follow up. Pain: Lower back, tailbone, tarun buttocks and leg numbness Quality: constant but varies in intensity w/activity Region: Lower back radiates across and down into the buttocks and has pain in her tailbone and states she has increased pain and numbness in her legs. Severity: aching/stabbing Timing: Since 2016 Aggravated by: sitting, walking, laying on back Relieved by: injections Pain score (out of 10): 6/10 Other info: Patient is here for a follow up. reports pain in the lower back pain that radiates into the tailbone and into the buttocks and down bilateral legs on occasion. States when she gets out of bed she feels a lot of pain. Needs no refill at this time, She continues to do ok with her medications without side effects, she denies any bowel or bladder problems, she denies any other associated symptoms, would like to discuss RFA, she has been doing her HEP as well as gym exercises and she is working on her core, she stated her injection was denied and she would like to have an RFA, ROS Occasional migraine.Patient denies any fever, chills, headache, change in weight without trying, vision or hearing problems. No cp, sob, lópez, pnd, orthopnea, or peripheral edema.They note no lumps or swollen glands, no new rashes, changing moles, or change bladder function but has some blood in stool. Mood has been good overall. 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 drugs: denies FH ======== Structured Family History ======== Grandparent: Stroke Paternal Grandmother: Cancer of colon Family Member - Aunt: Breast cancer Grandparent: Stroke Paternal Grandmother: Cancer of colon Family Member - Aunt: Breast cancer Allergies Bactrim Meds 1) baclofen 10 mg oral tablet, 1 PO TID PRN spasms. 2) hydrocodone-acetaminophen 5 mg-325 mg oral tablet, 1 PO TID PRN PAIN. 3) IUD control 4) levothyroxine 25 mcg (0.025 mg) oral tablet, One tablet in the morning 5) nabumetone 750 mg oral tablet, 1 PO BID with food. 6) Omeprazole , Take 1 tablet by mouth every morning 7) PT/OT Eval, Functional capacity eval. 8) SUMAtriptan 50 mg oral tablet, prn Vitals Wt: 355 lb Ht/Ln: 66 in BMI: 57.3 BP: 138/86 Pulse: 78 RR: 16 Temp: 98.4F Pain: 6 PE Well nourished and well developed, overweight, in no acute distress. Alert and oriented to person, place and time. Affect is normal and appropriate. Mucosa pink and moist. Respirations even and unlabored. Neck is supple without significant lymphadenopathy or thyromegaly. Abdomen soft & non-tender. No HSM or masses appreciated. Extremities show no cyanosis, clubbing, or edema, obese. Gait is Antalgic. Lumbar ROM is limited due to pain worse with extension. Lumbar paraspinal muscle tenderness worse on the left. Bilateral lumbar facet loading is positive worse on the left. SLR is negative. Motor and sensory exam is unchanged. A/P # Other intervertebral disc displacement, lumbosacral region (M51.27): # care home (current) use of opiate analgesic (Z79.891): Continue current medication regime, she will call us with refills. Continue with her TENS unit. Follow up with her PCP. OARRS was reviewed today. UDS was reviewed and was compliant. SOAPP score is 1 DIRE score 21 There are no signs of diversion or addiction with the pt, there is also no signs of abuse or misuse, continues to do well with their medications without any side effects, we will continue monitoring the pt closely. PEG was reviewed today. Life style modifications were also discussed today and the pt appears to understand. Weight loss was recommended today through diet and exercise Risks and benefits of the above meds were discussed with the pt and they appear to understand. The common side effects of the medications were discussed and all of their questions and concerns were answered and they appear to understand. Pt is to continue with her HEP. Pt has tried multiple modalities with no success, we will schedule the pt for left sided lumbar RFA L4-S1 followed by the right side we will await the auth first as the pt did have bilateral facets injection with 80% improvement oin the past but short lived. We have discussed the risks, benefits as well as alternatives of the procedure and the patient appears to understand and would like to proceed with the above plan. The above plan was discussed today with the pt in details and they appear to understand and agrees to continue with the plan.
[2020-03-21] MEDS: Lactated Ringers 1,000 ML 100 ML IV (08:12)
--- NOTE | 2020-03-21 08:30 | RAD_ITS ---
STUDY: X-RAY - LUMBAR SPINE REASON FOR EXAM: Female, 29 years old. RADIO FREQUENCY ABLATION, L4-S1, LEFT TECHNIQUE: 7 intraoperative view(s) of the lumbar spine were obtained. COMPARISON: None FINDINGS: 7 Limited intraoperative C-arm films of the lumbar spine were performed as the patient has undergone radioablation on the left side from from L4 to S1. Surgically placed needles free of complication RAD/Lumbar Spine 2 or 3 Views IMPRESSION: L4-S1 radio ablation Electronically Signed: Kirill Alcaraz MD at 12:59 EDT , Service support ,
[2020-03-21] MEDS: MethylPREDNISolone Acetate 80 MG/ML Vial (08:32)
[2020-03-21] MEDS: Bupivacaine 0.25% 30 ML Vial (08:32)
--- NOTE | 2020-03-21 08:56 | OP.PCM_ITS ---
Report of Operation Date of Procedure: 03/21/20 Description of Surgical Findings:: PREOPERATIVE DIAGNOSIS: Lumbar disc displacement POSTOPERATIVE DIAGNOSIS: Lumbar disc displacement PROCEDURE PERFORMED: Left-sided lumbar radiofrequency ablation of the medial branch at L4, L5, and S1. ANESTHESIA: MAC. BLOOD LOSS: Minimal. COMPLICATIONS: None. DESCRIPTION OF PROCEDURE: History and physical of today was reviewed. Risks a nd benefits of the procedure were explained. The patient understood and agreed to proceed. Informed consent was obtained. IV inserted per routine protocol. The patient was taken to the operating room and placed in the prone position with a pillow positioned underneath the abdomen. The Left side of her lower back was prepped and draped in a sterile fashion using iodine x3. Under fluoroscopy guidance in an oblique view, the L3 through S1 vertebral bodies were visualized. The skin and subcutaneous tissue was anesthetized with approximately 10 mL of 1% lidocaine using a 25-gauge regular needle. Under direct visualization on fluoroscopy at approximately 25-degree angle, starting on the Left L4, ending on the Left S1, passing through the L5, using a 20-gauge 15-cm with a 10-mm curved active-tip radiofrequency ablation needle, the needle was passed through the skin. The tip of the needle was maneuvered and directed towards the superior medial gutter of the transverse process at the vicinity of the medial branch. Once the tip of the needle was in contact with the bone, the needle was pulled approximately 2 mm off the bone. The stylette of each needle was then removed. After negative aspiration of blood or CSF and confirmation on AP, oblique as well as lateral view, the radiofrequency ablation probe was then inserted at each level. Impedance was then recorded at L4 to be 262 ohm, at L5 to be 257 ohm, and at S1 to be 344 ohm. Motor evoked potential was then initiated to 1.5 volt without any motor response at each corresponding level. The probe was then removed intact and a total of 6 mL of preservative-free 1% lidocaine was injected in divided doses between those four levels after negative aspiration of blood or CSF. The radiofrequency ablation probe was then reinserted. After confirmation on AP, oblique as well as lateral view, radiofrequency ablation was then initiated to 80 degree Celsius for 90 second at each level. Once concluded, the probe was then removed intact. A total of 6 mL of preservative-free 0.25% Marcaine with 40 mg of Depo-Medrol was injected in divided doses between those four levels. The needles were then removed intact. The patient experienced no sign or symptoms of intrathecal or intravascular injection. The patient experienced no paresthesia. The procedure was completed without any apparent difficulty or any complications. The patient appeared to tolerate it well. Sensory as well as motor exam was unchanged from prior to the procedure. ASSESSMENT AND PLAN: This is a 29-year-old female with lumbar disc displacement status post left- sided lumbar radiofrequency ablation of the medial branch L4, L5, S1 patient will continue her current medications, patient will follow approximately 2 weeks for reevaluation.
== END 2020-03-21 09:45 | disposition home or self-care (01) ==
LOC: SDC 07:19 → AC 07:20
PROVIDERS: PCP Internal Medicine; Referring Provider Anesthesiology Pain Medicine; Visit Provider Anesthesiology Pain Medicine
PROC: (CPT 64635; principal; 2020-03-21 08:25)
DX: M51.26 Other intervertebral disc displacement, lumbar region (principal); M51.27 Other intervertebral disc displacement, lumbosacral region; K21.9 Gastro-esophageal reflux disease without esophagitis; E66.3 Overweight; Z68.43 Body mass index [BMI] 50.0-59.9, adult; Z79.891 Long term (current) use of opiate analgesic
CPT/HCPCS: 64635; 64636; 72100; 76000; J7120

== ENCOUNTER 2020-05-09 08:41 | Day surgery (SDC) | payer OTHER, SELFPAY ==
[2020-03-21 07:54] VITALS: BMI 60.2
[2020-05-09] VITALS (7 sets, daily range): BP systolic 133–160; BP diastolic 77–91; PULSE 65–72; RESP 16–20; TEMP 36.2–37.1; O2SAT 96–99; BMI 60.5
[2020-05-09] MEDS: Lactated Ringers 1,000 ML 100 ML IV (09:12)
--- NOTE | 2020-05-09 09:45 | RAD_ITS ---
CLINICAL HISTORY: Female, 29 years old. Spinal canal stenosis. Lower back pain PROCEDURE: RADIO FREQUENCY ABLATION L4-S1 FLUOROSCOPY TIME (if supplied): (0:30) seconds estimated dose is 2.6 mGy , 2 views FINDINGS: RADIO FREQUENCY ABLATION L4-S1 RAD/Lumbar Spine 2 or 3 Views IMPRESSION: RADIO FREQUENCY ABLATION L4-S1 Electronically Signed: Virginia Solorio, at 16:05 EDT Tel , Service support ,
[2020-05-09] MEDS: MethylPREDNISolone Acetate 80 MG/ML Vial (09:47)
[2020-05-09] MEDS: Bupivacaine 0.25% 30 ML Vial (09:47)
--- NOTE | 2020-05-09 16:53 | OP.PCM_ITS ---
Report of Operation Date of Procedure: 05/09/20 Description of Surgical Findings:: PREOPERATIVE DIAGNOSIS: Lumbar disc displacement POSTOPERATIVE DIAGNOSIS: Lumbar disc displacement PROCEDURE PERFORMED: Right-sided lumbar radiofrequency ablation of the medial branch at L4, L5, and S1. ANESTHESIA: MAC. BLOOD LOSS: Minimal. COMPLICATIONS: None. DESCRIPTION OF PROCEDURE: History and physical of today was reviewed. Risks and benefits of the procedure were explained. The patient understood and agreed to proceed. Informed consent was obtained. IV inserted per routine protocol. The patient was taken to the operating room and placed in the prone position with a pillow positioned underneath the abdomen. The Left side of her lower back was prepped and draped in a sterile fashion using iodine x3. Under fluoroscopy guidance in an oblique view, the L3 through S1 vertebral bodies were visualized. The skin and subcutaneous tissue was anesthetized with approximately 10 mL of 1% lidocaine using a 25-gauge regular needle. Under direct visualization on fluoroscopy at approximately 25-degree angle, starting on the right L4, ending on the right6 S1, passing through the L5, using a 20- gauge 15-cm with a 10-mm curved active-tip radiofrequency ablation needle, the needle was passed through the skin. The tip of the needle was maneuvered and directed towards the superior medial gutter of the transverse process at the vicinity of the medial branch. Once the tip of the needle was in contact with the bone, the needle was pulled approximately 2 mm off the bone. The stylette of each needle was then removed. After negative aspiration of blood or CSF and confirmation on AP, oblique as well as lateral view, the radiofrequency ablation probe was then inserted at each level. Impedance was then recorded at L4 to be 326 ohm, at L5 to be 227 ohm, and at S1 to be 306 ohm. Motor evoked potential was then initiated to 1.5 volt without any motor response at each corresponding level. The probe was then removed intact and a total of 6 mL of preservative-free 1% lidocaine was injected in divided doses between those four levels after negative aspiration of blood or CSF. The radiofrequency ablation probe was then reinserted. After confirmation on AP, oblique as well as lateral view, radiofrequency ablation was then initiated to 80 degree Celsius for 90 second at each level. Once concluded, the probe was then removed intact. A total of 6 mL of preservative-free 0.25% Marcaine with 40 mg of Depo-Medrol was injected in divided doses between those four levels. The needles were then removed intact. The patient experienced no sign or symptoms of intrathecal or intravascular injection. The patient experienced no paresthesia. The procedure was completed without any apparent difficulty or any complications. The patient appeared to tolerate it well. Sensory as well as motor exam was unchanged from prior to the procedure. ASSESSMENT AND PLAN: This is a 29-year-old female with lumbar disc displacement status post right- sided lumbar radiofrequency ablation of the medial branch L4, L5, S1 patient will continue her current medications, patient will follow approximately 2 weeks for reevaluation.
== END 2020-05-09 11:06 | disposition home or self-care (01) ==
LOC: SDC 08:41 → AC 08:42
PROVIDERS: PCP Internal Medicine; Referring Provider Anesthesiology Pain Medicine; Visit Provider Anesthesiology Pain Medicine
PROC: (CPT 64635; principal; 2020-05-09 10:05)
DX: M51.26 Other intervertebral disc displacement, lumbar region (principal); K21.9 Gastro-esophageal reflux disease without esophagitis; Z79.899 Other long term (current) drug therapy; Z79.891 Long term (current) use of opiate analgesic
CPT/HCPCS: 01936; 64635; 64636; 72100; 76000; J7120

== ENCOUNTER 2020-12-19 08:27 | Day surgery (SDC) | payer OTHER, SELFPAY ==
[2020-05-12 11:03] VITALS: BMI 60.5
[2020-12-19] VITALS (10 sets, daily range): BP systolic 129–144; BP diastolic 65–78; PULSE 66–93; RESP 16; TEMP 36.3–37.1; O2SAT 95–100; BMI 60.2
[2020-12-19 08:52] LABS: Internal QC Validated? YES +Cl - CLEAR BKGD
[2020-12-19 08:56] LABS: Pregnancy, Urine Negative Negative
[2020-12-19] MEDS: Lactated Ringers 1,000 ML 100 ML IV (09:11)
[2020-12-19] MEDS: MethylPREDNISolone Acetate 40 MG/ML Vial IM (09:40)
[2020-12-19] MEDS: Bupivacaine 0.25% 30 ML Vial (09:40)
--- NOTE | 2020-12-19 09:40 | RAD_ITS ---
STUDY: LUMBAR SPINE, REASON FOR EXAM: Female, 30 years old. RADIO FREQ ABLATION L4-S1,LEFT RADIATION DOSAGE (If Supplied By Facility): CTDIvol = ( ) mGy, DLP = ( ) mGycm. Individualized dose optimization techniques were used for this CT.? FLUOROSCOPY TIME (if supplied): ( 35 )seconds, 6 intraoperative views obtained TECHNIQUE: 6 intraoperative C-arm films COMPARISON: 03/21/2020 FINDINGS: 6 limited intraoperative C-arm films were performed as the patient has undergone left L4-S1 ablation. No complications noted. RAD/Lumbar Spine 2 or 3 Views IMPRESSION: L4-S1 ablation Electronically Signed: Kirill Alcaraz MD at 7:38 EDT , Service support ,
[2020-12-19] MEDS: Lidocaine 1% (30 ml sdv) 30 ML Vial (09:41)
--- NOTE | 2020-12-19 09:55 | OP.PCM_ITS ---
Report of Operation Date of Procedure: 12/19/20 Pre-Operative Diagnosis: Lumbar disc displacement Post-Operative Diagnosis: Lumbar disc displacement Surgery/Procedure Performed:: Left-sided lumbar radiofrequency ablation of the medial branch L4, L5, S1 Type of Anesthesia: MAC Estimated Blood Loss (mL): Minimal Description of Procedure: History and physical today was reviewed. Risks and benefits of procedure explained. The patient understood, agreed to the procedure and informed consent was obtained. IV inserted per routine protocol. The patient was taken to the operating room, placed in the prone position with a pillow positioned underneath the abdomen. The left side of the lower back was prepped and draped in a sterile fashion using iodine x 3. Under fluoroscopy guidance, on an oblique view, the L4 through S1 vertebral bodies were visualized. The skin and subcutaneous tissue was anesthetized with approximately 10 mL of 1% lidocaine using a 25-gauge regular needle. Under direct visualization with fluoroscopy at approximately 25-degree angle, starting on the left L4, ending on the left S1 passing through the L4-L5 using a 20-gauge 15 cm with a 10 mm curved active tip radiofrequency ablation needle the needle passed through the skin. The tip of the needle was maneuvered and directed towards the superior and medial gutter of the transverse process at the vicinity of the medial branch. Once the tip of the needle was in contact with the bone, the needle pulled approximately 2 mm up the bone. The stylet of each needle was then removed. After negative aspiration of blood with CSF and confirmation of AP as well as oblique view, radiofrequency ablation probe was then inserted at each level. Impedance was then recorded at at L4 215, at L5 253, at S1 372 ohm. Motor-evoked potential was then initiated to 1.5 volt without any motor response at each corresponding level. The probe was then removed intact and a total of 6 mL preservative-free 1% lidocaine was injected in divided doses between those 4 levels after negative aspiration of blood with CSF. The radiofrequency ablation probe was then reinserted after confirmation of AP, oblique as well as lateral view. Radiofrequency ablation was then initiated to 80 degrees Celsius for 90 seconds at each level. Once concluded, the probe was then removed intact and a total of 6 mL of preservative-free 0.25% Marcaine with 40 mg Depo-Medrol was injected in divided doses between those 3 levels. The needles were then removed intact. The patient experienced no signs or symptoms of intrathecal, intravascular injection. The patient experienced no paraesthesia. The procedure was completed without any apparent difficulty, any complication. The patient appeared to tolerate well. Sensory as well as motor exam was unchanged from prior to procedure. ASSESSMENT AND PLAN: This is a 30-year-old female with lumbar disc displacement, status post left- sided lumbar radiofrequency ablation of the medial branch L4 through S1. The patient will continue her current medications. The patient will follow up in approximately 2 weeks for reevaluation. Complications None
== END 2020-12-19 11:29 | disposition home or self-care (01) ==
LOC: SDC 08:28 → AC 08:30
PROVIDERS: Anesthesiology; PCP Internal Medicine; Referring Provider Anesthesiology Pain Medicine; Visit Provider Anesthesiology Pain Medicine
PROC: (CPT 64635; principal; 2020-12-19 09:35)
DX: M51.26 Other intervertebral disc displacement, lumbar region (principal); K21.9 Gastro-esophageal reflux disease without esophagitis; I10 Essential (primary) hypertension; E03.9 Hypothyroidism, unspecified; E66.01 Morbid (severe) obesity due to excess calories; Z68.44 Body mass index [BMI] 60.0-69.9, adult; Z79.899 Other long term (current) drug therapy
CPT/HCPCS: 01936; 64635; 64636; 72100; 76000; 81025; J7120

== ENCOUNTER 2021-01-23 06:28 | Day surgery (SDC) | payer OTHER, SELFPAY ==
[2020-12-19 08:54] VITALS: BMI 60.2
[2021-01-23] VITALS (9 sets, daily range): BP systolic 130–154; BP diastolic 64–83; PULSE 58–82; RESP 16–18; TEMP 36.1–36.4; O2SAT 94–100; BMI 59.4
[2021-01-23] MEDS: Lactated Ringers 1,000 ML 100 ML IV (06:40)
[2021-01-23 06:53] LABS: Internal QC Validated? YES +Cl - CLEAR BKGD; Pregnancy, Urine Negative Negative
--- NOTE | 2021-01-23 08:10 | RAD_ITS ---
PROCEDURE: Radiofrequency ablation. DATE OF EXAMINATION: 01/23/2021. INDICATION: Female, 30 years old. Chronic back pain. FLUOROSCOPY TIME (if supplied): (28 seconds) minutes/seconds. 7 images were obtained. RAD/Lumbar Spine 2 or 3 Views IMPRESSION: Intraoperative imaging provided for right L4-S1 radiofrequency ablation. Electronically Signed: Zion Huizar MD at 9:05 EDT , Service support ,
[2021-01-23] MEDS: Lidocaine 1% (30 ml sdv) 30 ML Vial (08:15)
[2021-01-23] MEDS: MethylPREDNISolone Acetate 40 MG/ML Vial IM (08:15)
[2021-01-23] MEDS: Bupivacaine 0.25% 30 ML Vial (08:15)
--- NOTE | 2021-01-23 16:10 | OP.PCM_ITS ---
Report of Operation Date of Procedure: 01/23/21 Description of Surgical Findings:: PREOPERATIVE DIAGNOSIS: Lumbar disc displacement POSTOPERATIVE DIAGNOSIS: Lumbar disc displacement PROCEDURE PERFORMED: Right-sided lumbar radiofrequency ablation of the medial branch at L4, L5, and S1. ANESTHESIA: MAC. BLOOD LOSS: Minimal. COMPLICATIONS: None. DESCRIPTION OF PROCEDURE: History and physical of today was reviewed. Risks and benefits of the procedure were explained. The patient understood and agreed to proceed. Informed consent was obtained. IV inserted per routine protocol. The patient was taken to the operating room and placed in the prone position with a pillow positioned underneath the abdomen. The Left side of her lower back was prepped and draped in a sterile fashion using iodine x3. Under fluoroscopy guidance in an oblique view, the L3 through S1 vertebral bodies were visualized. The skin and subcutaneous tissue was anesthetized with approximately 10 mL of 1% lidocaine using a 25-gauge regular needle. Under direct visualization on fluoroscopy at approximately 25-degree angle, starting on the right L4, ending on the right6 S1, passing through the L5, using a 20- gauge 15-cm with a 10-mm curved active-tip radiofrequency ablation needle, the needle was passed through the skin. The tip of the needle was maneuvered and directed towards the superior medial gutter of the transverse process at the vicinity of the medial branch. Once the tip of the needle was in contact with the bone, the needle was pulled approximately 2 mm off the bone. The stylette of each needle was then removed. After negative aspiration of blood or CSF and confirmation on AP, oblique as well as lateral view, the radiofrequency ablation probe was then inserted at each level. Impedance was then recorded at L4 to be 248 ohm, at L5 to be 267 ohm, and at S1 to be 238 ohm. Motor evoked potential was then initiated to 1.5 volt without any motor response at each corresponding level. The probe was then removed intact and a total of 6 mL of preservative-free 1% lidocaine was injected in divided doses between those four levels after negative aspiration of blood or CSF. The radiofrequency ablation probe was then reinserted. After confirmation on AP, oblique as well as lateral view, radiofrequency ablation was then initiated to 80 degree Celsius for 90 second at each level. Once concluded, the probe was then removed intact. A total of 6 mL of preservative-free 0.25% Marcaine with 40 mg of Depo-Medrol was injected in divided doses between those four levels. The needles were then removed intact. The patient experienced no sign or symptoms of intrathecal or intravascular injection. The patient experienced no paresthesia. The procedure was completed without any apparent difficulty or any complications. The patient appeared to tolerate it well. Sensory as well as motor exam was unchanged from prior to the procedure. ASSESSMENT AND PLAN: This is a 30-year-old female with lumbar disc displacement status post right- sided lumbar radiofrequency ablation of the medial branch L4, L5, S1 patient will continue her current medications, patient will follow approximately 2 weeks for reevaluation.
== END 2021-01-23 09:45 | disposition home or self-care (01) ==
LOC: SDC 06:28 → AC 06:29
PROVIDERS: Anesthesiology; PCP Internal Medicine; Referring Provider Anesthesiology Pain Medicine; Visit Provider Anesthesiology Pain Medicine
PROC: (CPT 64635; principal; 2021-01-23 07:55)
DX: M51.27 Other intervertebral disc displacement, lumbosacral region (principal); M19.90 Unspecified osteoarthritis, unspecified site; K21.9 Gastro-esophageal reflux disease without esophagitis; E03.9 Hypothyroidism, unspecified; I10 Essential (primary) hypertension; E66.01 Morbid (severe) obesity due to excess calories; G43.909 Migraine, unspecified, not intractable, without status migrainosus; Z68.43 Body mass index [BMI] 50.0-59.9, adult; Z79.899 Other long term (current) drug therapy; Z79.84 Long term (current) use of oral hypoglycemic drugs; Z79.891 Long term (current) use of opiate analgesic
CPT/HCPCS: 01936; 64635; 64636 ×2; 72100; 76000; 81025; J7120

== ENCOUNTER 2021-09-11 06:36 | Day surgery (SDC) | payer OTHER, SELFPAY ==
[2021-09-11 06:57] LABS: Internal QC Validated? YES +Cl - CLEAR BKGD; Pregnancy, Urine Negative Negative
[2021-09-11 07:04] VITALS: BP 129/81; PULSE 88; RESP 18; TEMP 37.4; O2SAT 99; BMI 61.6
[2021-09-11] MEDS: Lactated Ringers 1,000 ML 15 ML IV (07:16)
--- NOTE | 2021-09-11 08:05 | RAD_ITS ---
PROCEDURE: Left L4-S1 radiofrequency ablation. DATE OF EXAMINATION: 09/11/2021. INDICATION: Female, 30 years old. Chronic low back pain. FLUOROSCOPY TIME (if supplied): (25 seconds) minutes/seconds. Fluoroscopic images were obtained. RAD/L/S Spine Min 4 Views IMPRESSION: Intraoperative imaging provided for left L4-S1 radiofrequency ablation. Electronically Signed: Zion Huizar MD at 14:54 EST ,
[2021-09-11] MEDS: Bupivacaine 0.25% 30 ML Vial (08:09)
[2021-09-11] MEDS: MethylPREDNISolone Acetate 40 MG/ML Vial IM (08:09)
[2021-09-11] MEDS: Lidocaine 1% (30 ml sdv) 30 ML Vial (08:09)
[2021-09-11 08:29] VITALS: BP 129/81; BP 131/74; PULSE 77; RESP 16; TEMP 36.6; O2SAT 98
--- NOTE | 2021-09-11 08:33 | OP.PCM_ITS ---
Report of Operation Date of Procedure: 09/11/21 Description of Surgical Findings:: Pre-Operative Diagnosis: Lumbar disc displacement Post-Operative Diagnosis: Lumbar disc displacement Surgery/Procedure Performed:: Left-sided lumbar radiofrequency ablation of the medial branch L4, L5, S1 Type of Anesthesia: MAC Estimated Blood Loss (mL): Minimal Complications: None Description of Procedure: History and physical today was reviewed. Risks and benefits of procedure explained. The patient understood, agreed to the procedure and informed consent was obtained. IV inserted per routine protocol. The patient was taken to the operating room, placed in the prone position with a pillow positioned underneath the abdomen. The left side of the lower back was prepped and draped in a sterile fashion using iodine x 3. Under fluoroscopy guidance, on an oblique view, the L4 through S1 vertebral bodies were visualize d. The skin and subcutaneous tissue was anesthetized with approximately 10 mL of 1% lidocaine using a 25-gauge regular needle. Under direct visualization with fluoroscopy at approximately 25-degree angle, starting on the left L4, ending on the left S1 passing through the L4-L5 using a 20-gauge 15 cm with a 10 mm curved active tip radiofrequency ablation needle the needle passed through the skin. The tip of the needle was maneuvered and directed towards the superior and medial gutter of the transverse process at the vicinity of the medial branch. Once the tip of the needle was in contact with the bone, the needle pulled approximately 2 mm up the bone. The stylet of each needle was then removed. After negative aspiration of blood with CSF and confirmation of AP as well as oblique view, radiofrequency ablation probe was then inserted at each level. Impedance was then recorded at at L3 252 L4 279, at L5 212, at S1 391 ohm. Motor-evoked potential was then initiated to 1.5 volt without any motor response at each corresponding level. The probe was then removed intact and a total of 6 mL preservative-free 1% lidocaine was injected in divided doses between those 4 levels after negative aspiration of blood with CSF. The radiofrequency ablation probe was then reinserted after confirmation of AP, oblique as well as lateral view. Radiofrequency ablation was then initiated to 80 degrees Celsius for 90 seconds at each level. Once concluded, the probe was then removed intact and a total of 6 mL of preservative-free 0.25% Marcaine with 40 mg Depo-Medrol was injected in divided doses between those 3 levels. The needles were then removed intact. The patient experienced no signs or symptoms of intrathecal, intravascular injection. The patient experienced no paraesthesia. The procedure was completed without any apparent difficulty, any complication. The patient appeared to tolerate well. Sensory as well as motor exam was unchanged from prior to procedure. ASSESSMENT AND PLAN: This is a 30-year-old female with lumbar disc displacement, status post left- sided lumbar radiofrequency ablation of the medial branch L4 through S1. The patient will continue her current medications. The patient will follow up in approximately 2 weeks for reevaluation.
[2021-09-11 08:35] VITALS: BP 129/81; BP 141/69; PULSE 77; RESP 16; O2SAT 100
[2021-09-11 08:40] VITALS: BP 126/60; BP 129/81; PULSE 79; RESP 16; O2SAT 97
[2021-09-11 08:45] VITALS: BP 125/75; BP 129/81; PULSE 71; RESP 16; TEMP 36.4; O2SAT 99
[2021-09-11 09:01] VITALS: BP 129/81
== END 2021-09-11 23:59 | disposition home or self-care (01) ==
LOC: SDC 06:38 → AC 06:40
PROVIDERS: Anesthesiology; PCP Internal Medicine; Referring Provider Anesthesiology Pain Medicine; Visit Provider Anesthesiology Pain Medicine
PROC: (CPT 64635; principal; 2021-09-11 08:00)
DX: M51.27 Other intervertebral disc displacement, lumbosacral region (principal); Z79.891 Long term (current) use of opiate analgesic; K21.9 Gastro-esophageal reflux disease without esophagitis; E03.9 Hypothyroidism, unspecified; I10 Essential (primary) hypertension
CPT/HCPCS: 64635; 64636; 72110; 76000; 81025; J7120; A4216

== ENCOUNTER 2021-09-25 07:07 | Day surgery (SDC) | payer OTHER, SELFPAY ==
--- NOTE | 2021-09-22 13:09 | HP.PCM_ITS ---
History and Physical Date of Admission: 09/25/21 Chief Complaint: Follow up for lower back pain. History of Present Illness: This is a 30 Y/O female who was seen and evaluated at our office today as follow up. Pain: Lower back,tarun legs Quality: constant Region: Pain in the lower back radiates across and down the legs on occasion. Severity: aching, burning, sharp stabbing Timing: Since 2016 Aggravated by: everything Relieved by: ice, tens unit helps some Pain score (out of 10): 7/10 Other info: Follow up for lower back and bilateral leg pain. states pain has become worse in the few days. states pain is a constant sharp stabbing. would like to discuss medications, she did take her nabumetone and it does not help m uch, she also have been icing the area and using her TENS unit with little relief, she denies any bowel or bladder problems, she stated her pain is on the center of her back with spasms, she stated it is becoming more constant, she would like to have her left side done as it started to wear off. Review of Systems: Patient denies any fever, chills, headache, change in weight without trying, vision or hearing problems. No cp, sob, lópez, pnd, orthopnea, or peripheral edema.They note no lumps or swollen glands, no new rashes, changing moles, or change in bowel or bladder function. Mood has been good overall. 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 drugs: denies Allergies: Bactrim Medications: 1) baclofen 10 mg oral tablet, 1 PO TID PRN spasms. 2) hydrocodone-acetaminophen 5 mg-325 mg oral tablet, 1 PO TID PRN PAIN. 3) IUD control 4) metFORMIN 500 mg oral tablet, Take 2 tablet by mouth 2 times a Day 5) nabumetone 750 mg oral tablet, 1 PO BID with food. 6) PT/OT Eval, Functional capacity eval. 7) Unithroid 50 mcg (0.05 mg) oral tablet, daily as directed Physical Examination: Wt: 380.4 lb Ht/Ln: 66 in BMI: 61.4 BP: 126/74 Pulse: 79 RR: 16 Temp: 96.9F Pain: 9 Well nourished and well developed, overweight, in no acute distress. Alert and oriented to person, place and time. Affect is normal and appropriate. Mucosa pink and moist. Respirations even and unlabored. Neck is supple without significant lymphadenopathy or thyromegaly. Abdomen soft & non-tender. No HSM or masses appreciated. Extremities show no cyanosis, clubbing, or edema, obese. Gait is Antalgic. Lumbar ROM is limited due to pain. Lumbar paraspinal muscle tenderness. Bilateral lumbar facet loading is positive. SLR is negative. DTR 2+ bilateral Achilles and knee jerks. Goals: Health Concerns: Follow up post right RFA decreased pain by 80%. Assessment & Plan: # Other intervertebral disc displacement, lumbosacral region (M51.27): # alf (current) use of opiate analgesic (Z79.891): PRESCRIBE: Medrol Dosepak 4 mg oral tablet, take as directed., # 1, RF: 0. (Transmitted by Sonu Tam MD) Continue current medication regime, she will call us with refills. Continue with her TENS unit. MRI of the lumbar spine was reviewed again with the pt today and they appear to understand. Follow up with her PCP. OARRS was reviewed today. UDS was reviewed and was compliant. SOAPP score is 1 DIRE score 21 There are no signs of diversion or addiction with the pt, there is also no signs of abuse or misuse, continues to do well with their medications without any side effects, we will continue monitoring the pt closely. PEG was reviewed today. Life style modifications were also discussed today and the pt appears to understand. Weight loss was recommended today through diet and exercise Risks and benefits of the above meds were discussed with the pt and they appear to understand. The common side effects of the medications were discussed and all of their questions and concerns were answered and they appear to understand. Pt is to continue with her HEP. Pt has tried multiple modalities with no success, we will schedule the pt for repeat left sided lumbar RFA L4-S1 followed by the right as it has worked well for the past 8 months. We have discussed the risks, benefits as well as alternatives of the procedure and the patient appears to understand and would like to proceed with the above plan. The above plan was discussed today with the pt in details and they appear to understand and agrees to continue with the plan.
[2021-09-25] VITALS (10 sets, daily range): BP systolic 111–139; BP diastolic 73–96; PULSE 70–90; RESP 15–20; TEMP 36.5–37.1; O2SAT 94–99; BMI 61.5
[2021-09-25] MEDS: Lactated Ringers 1,000 ML 15 ML IV (07:50)
[2021-09-25 08:08] LABS: Internal QC Validated? YES +Cl - CLEAR BKGD; Pregnancy, Urine Negative Negative
--- NOTE | 2021-09-25 08:25 | RAD_ITS ---
STUDY: X-RAY - LUMBAR SPINE REASON FOR EXAM: Female, 30 years old. RADIO FREQ ABLATION, L4-S1,RIGHT TECHNIQUE: Intraoperative imaging provided for right L4-S1 radiofrequency ablation. 8 images were obtained. COMPARISON: None FINDINGS: Intraoperative imaging provided for right L4-S1 radiofrequency ablation of the facet joints. RAD/L/S Spine Min 4 Views IMPRESSION: Intraoperative angioplasty for right L4-S1 related to accumulation of the facet joints. Electronically Signed: Zion Huiazr MD at 9:43 EST ,
[2021-09-25] MEDS: Bupivacaine 0.25% 30 ML Vial (08:35)
[2021-09-25] MEDS: Lidocaine 1% (5 ml sdv) 5 ML Vial (08:35)
[2021-09-25] MEDS: MethylPREDNISolone Acetate 40 MG/ML Vial IM (08:35)
--- NOTE | 2021-09-25 08:56 | OP.PCM_ITS ---
Report of Operation Date of Procedure: 09/25/21 Pre-Operative Diagnosis: Lumbar disc displacement Post-Operative Diagnosis: Lumbar disc displacement Surgery/Procedure Performed:: Right-sided lumbar radiofrequency ablation of the medial branch L4, L5, S1 Type of Anesthesia: MAC Estimated Blood Loss (mL): Minimal Description of Procedure: History and physical today was reviewed. Risks and benefits of procedure explained. The patient understood, agreed to the procedure and informed consent was obtained. IV inserted per routine protocol. The patient was taken to the operating room[facility] in [facility] prone position with a pillow positioned underneath the abdomen. The right side of the lower back was prepped and draped in a sterile fashion using iodine x 3. Under fluoroscopy guidance, on an oblique view, the L3 through S1 vertebral bodies were visualized. The skin and subcutaneous tissue was anesthetized with approximately 10 mL of 1% lidocaine using a 25-gauge regular needle. Under direct visualization with fluoroscopy at approximately 25-degree angle, starting on the right L3, ending on the right S1 passing through the L4-L5 using a 20-gauge 15 cm with a 10 mm curved active tip radiofrequency ablation needle the needle passed through the skin. The tip of the needle was maneuvered and directed towards the superior and medial gutter of the transverse process at the vicinity of the medial branch. Once the tip of the needle was in contact with the bone, the needle pulled approximately 2 mm up the bone. The stylet of each needle was then removed. After negative aspiration of blood with CSF and confirmation of AP as well as oblique view, radiofrequency ablation probe was then inserted at each level. Impedance was then recorded at L3 to be 274, at L4 297, at L5 256, at S1 288 ohm. Motor-evoked potential was then initiated to 1.5 volt without any motor response at each corresponding level. The probe was then removed intact and a total of 6 mL preservative-free 1% lidocaine was injected in divided doses between those 4 levels after negative aspiration of blood with CSF. The radiofrequency ablation probe was then reinserted after confirmation of AP, oblique as well as lateral view. Radiofrequency ablation was then initiated to 80 degrees Celsius for 90 seconds at each level. Once concluded, the probe was then removed intact and a total of 6 mL of preservative-free 0.25% Marcaine with 40 mg Depo-Medrol was injected in divided doses between those 4 levels. The needles were then removed intact. The patient experienced no signs or symptoms of intrathecal, intravascular injection. The patient experienced no paraesthesia. The procedure was completed without any apparent difficulty, any complication. The patient appeared to tolerate well. Sensory as well as motor exam was unchanged from prior to procedure. ASSESSMENT AND PLAN: This is a 30-year-old female with lumbar disc displacement, status post right- sided radiofrequency ablation of the medial branch L4 through S1. The patient will continue her current medications. The patient will follow up in approximately 2 weeks for reevaluation. Complications None
== END 2021-09-25 23:59 | disposition home or self-care (01) ==
LOC: SDC 07:09 → AC 07:10
PROVIDERS: Anesthesiology; PCP Internal Medicine; Referring Provider Anesthesiology Pain Medicine; Visit Provider Anesthesiology Pain Medicine
PROC: (CPT 64635; principal; 2021-09-25 08:25)
DX: M51.27 Other intervertebral disc displacement, lumbosacral region (principal); E66.01 Morbid (severe) obesity due to excess calories; Z68.44 Body mass index [BMI] 60.0-69.9, adult; M51.26 Other intervertebral disc displacement, lumbar region; I10 Essential (primary) hypertension; E03.9 Hypothyroidism, unspecified; K21.9 Gastro-esophageal reflux disease without esophagitis; Z79.891 Long term (current) use of opiate analgesic; Z79.899 Other long term (current) drug therapy
CPT/HCPCS: 64635; 64636; 72110; 76000; 81025; J7120; J2405

== ENCOUNTER 2022-02-19 08:34 | Day surgery (SDC) | payer OTHER, SELFPAY ==
[2022-02-19] VITALS (10 sets, daily range): BP systolic 97–133; BP diastolic 49–93; PULSE 70–80; RESP 18–20; TEMP 36.2–36.4; O2SAT 96–100; BMI 61.5
[2022-02-19] MEDS: 0.9% Normal Saline (Pres. free 10 ML Vial (09:13)
[2022-02-19] MEDS: MethylPREDNISolone Acetate 80 MG/ML Vial (09:13)
[2022-02-19] MEDS: Lidocaine 1% (5 ml sdv) 5 ML Vial (09:13)
[2022-02-19] MEDS: Bupivacaine 0.25% 30 ML Vial (09:13)
[2022-02-19] MEDS: Lactated Ringers 1,000 ML 15 ML IV (09:20)
[2022-02-19 09:31] LABS: Internal QC Validated? YES +Cl - CLEAR BKGD; Pregnancy, Urine Negative Negative
--- NOTE | 2022-02-19 10:12 | RAD_ITS ---
PROCEDURE: Caudal block. DATE OF EXAMINATION: 02/19/2022. INDICATION: Female, 31 years old. Chronic low back pain. FLUOROSCOPY TIME (if supplied): (19 sex) minutes/seconds. 2 images were obtained. RAD/Fluor Guidance for Spine Inj IMPRESSION: Intraoperative imaging provided for caudal block. Electronically Signed: Zion Huizar MD at 12:47 EDT ,
--- NOTE | 2022-02-19 10:43 | PCM.OPRPT ---
Report of Operation Date of Procedure: 02/19/22 Pre-Operative Diagnosis: Lumbar disc displacement Post-Operative Diagnosis: Lumbar disc displacement Surgery/Procedure Performed:: Caudal epidural steroid injection under fluoroscopic guidance Type of Anesthesia: MAC Estimated Blood Loss (mL): Minimal Description of Procedure: DESCRIPTION OF PROCEDURE: History and physical of today was reviewed. Risks and benefits of the procedure were explained. The patient understood and agreed to proceed. Informed consent was obtained. IV inserted per routine protocol. The patient was taken to the operating room and placed in the prone position with a pillow positioned underneath the abdomen. The lower back and tailbone area was prepped and draped in a sterile fashion using iodine x3. Under fluoroscopy guidance on a lateral view, the caudal space was identified. The skin and subcutaneous tissue was anesthetized with approximately 3 mL of 1% lidocaine using a 25-gauge regular needle. Under direct visualization with fluoroscopy, using a 22-gauge 3-1/2-inch spinal needle, the needle was advanced via the skin through the sacral hiatus. The tip of the needle was passed through the sacrococcygeal ligament and advanced to approximately S4 area. After negative aspiration of blood or CSF, a total of 3 mL of contrast was injected to confirm correct placement of the needle as well as cephalad spread. The spread was followed to approximately L5 area. After confirmation on AP as well as lateral view and repeated negative aspiration, a total of 15 mL of preservative-free 0.125% Marcaine with 80 mg of Depo-Medrol was injected easily. The needle was then removed intact. The patient experienced no sign or symptoms of intrathecal or intravascular injection. The patient experienced no paresthesia. The procedure was completed without any apparent difficulty or any complications. The patient appeared to tolerate it well. ASSESSMENT AND PLAN: This is a 31-year-old female with lumbar disc displacement status post caudal epidural steroid injection, patient will continue her current medications, patient will follow in approximately 2 weeks for reevaluation. Complications None
== END 2022-02-19 12:13 | disposition home or self-care (01) ==
LOC: SDC 08:35 → AC 08:38
PROVIDERS: Anesthesiology; PCP Internal Medicine; Referring Provider Anesthesiology Pain Medicine; Visit Provider Anesthesiology Pain Medicine
PROC: 3E0S3BZ Introduction of Anesthetic Agent into Epidural Space, Percutaneous Approach (ICD-10-PCS; CPT 62282; principal; 2022-02-19 10:05)
DX: M51.26 Other intervertebral disc displacement, lumbar region (principal); E66.01 Morbid (severe) obesity due to excess calories; Z68.44 Body mass index [BMI] 60.0-69.9, adult; K21.9 Gastro-esophageal reflux disease without esophagitis; Z79.899 Other long term (current) drug therapy; E03.9 Hypothyroidism, unspecified; Z79.890 Hormone replacement therapy; R20.2 Paresthesia of skin
CPT/HCPCS: 62323; 01992; 64483; 77003; 81025; J7120; J3490

== ENCOUNTER 2023-11-15 05:37 | Day surgery (SDC) | payer OTHER, SELFPAY ==
[2023-11-15 06:09] VITALS: BP 126/91; PULSE 88; RESP 20; TEMP 36.9; O2SAT 100; BMI 53.8
[2023-11-15 06:09] LABS: Internal QC Validated? YES +Cl - CLEAR BKGD; Pregnancy, Urine Negative Negative
[2023-11-15] MEDS: Lactated Ringers 1,000 ML 15 ML IV (06:18)
[2023-11-15] MEDS: Lidocaine 1% (5 ml sdv) 5 ML Vial (07:25)
[2023-11-15] MEDS: 0.9% Normal Saline (Pres. free 10 ML Vial (07:25)
[2023-11-15] MEDS: MethylPREDNISolone Acetate 80 MG/ML Vial (07:25)
--- NOTE | 2023-11-15 07:25 | RAD_ITS ---
PROCEDURE: Intraoperative fluoroscopy DATE OF EXAMINATION: November 15, 2023 INDICATION: Female, 33 years old. Caudal block FLUOROSCOPY TIME (if supplied): (0/7) minutes/seconds PROCEDURE/TECHNIQUE: Single view from intraoperative fluoroscopy FINDINGS: Intraoperative fluoroscopy utilized during a caudal block. RAD/Fluor Guidance for Spine Inj IMPRESSION: Intraoperative fluoroscopy. Electronically Signed: Blaine Slade MD at 8:53 EDT ,
--- NOTE | 2023-11-15 07:29 | PCM.OPRPT ---
Report of Operation Date of Procedure: 11/15/23 Pre-Operative Diagnosis: Lumbar Disc Displacement Post-Operative Diagnosis: Lumbar Disc Displacement Surgery/Procedure Performed:: Caudal epidural steroid injection under fluoroscopic guidance Type of Anesthesia: MAC Estimated Blood Loss (mL): Minimal Description of Procedure: DESCRIPTION OF PROCEDURE: History and physical of today was reviewed. Risks and benefits of the procedure were explained. The patient understood and agreed to proceed. Informed consent was obtained. IV inserted per routine protocol. The patient was taken to the operating room and placed in the prone position with a pillow positioned underneath the abdomen. The lower back and tailbone area was prepped and draped in a sterile fashion using iodine x3. Under fluoroscopy guidance on a lateral view, the caudal space was identified. The skin and subcutaneous tissue was anesthetized with approximately 3 mL of 1% lidocaine using a 25-gauge regular needle. Under direct visualization with fluoroscopy, using a 22-gauge 3-1/2-inch spinal needle, the needle was advanced via the skin through the sacral hiatus. The tip of the needle was passed through the sacrococcygeal ligament and advanced to approximately S4 area. After negative aspiration of blood or CSF, a total of 3 mL of contrast was injected to confirm correct placement of the needle as well as cephalad spread. The spread was followed to approximately L5 area. After confirmation on AP as well as lateral view and repeated negative aspiration, a total of 15 mL of preservative-free 0.125% Marcaine with 80 mg of Depo-Medrol was injected easily. The needle was then removed intact. The patient experienced no sign or symptoms of intrathecal or intravascular injection. The patient experienced no paresthesia. The procedure was completed without any apparent difficulty or any complications. The patient appeared to tolerate it well. ASSESSMENT AND PLAN: This is a 33-year-old female with lumbar disc displacement status post caudal epidural steroid injection, patient will continue her current medications, patient will follow in approximately 2 weeks for reevaluation. Complications None
[2023-11-15 07:35] VITALS: BP 126/91; BP 131/68; PULSE 64; RESP 18; TEMP 37.3; O2SAT 98
[2023-11-15 07:40] VITALS: BP 123/75; BP 126/91; PULSE 63; RESP 16; O2SAT 94
[2023-11-15 07:45] VITALS: BP 126/91; BP 131/82; PULSE 66; RESP 16; O2SAT 98
[2023-11-15 07:51] VITALS: BP 126/91; BP 138/74; PULSE 63; RESP 16; TEMP 36.8; O2SAT 97
[2023-11-15 08:06] VITALS: BP 126/91
[2023-11-15] MEDS: Oxycodone/Apap 5/325 Tablet PO (08:10)
== END 2023-11-15 08:18 | disposition home or self-care (01) ==
LOC: SDC 05:44 → AC 05:46
PROVIDERS: Anesthesiology; Referring Provider Anesthesiology Pain Medicine; Visit Provider Anesthesiology Pain Medicine
PROC: 3E0S3BZ Introduction of Anesthetic Agent into Epidural Space, Percutaneous Approach (ICD-10-PCS; CPT 62282; principal; 2023-11-15 07:10)
DX: M51.26 Other intervertebral disc displacement, lumbar region (principal); E66.01 Morbid (severe) obesity due to excess calories; Z68.43 Body mass index [BMI] 50.0-59.9, adult; E03.9 Hypothyroidism, unspecified; Z79.899 Other long term (current) drug therapy
CPT/HCPCS: 62323; 01992; 64483; 77003; 81025; J7120; J2405; J3490